=== PATIENT | female | born 1990 | race Caucasian/White ===

== ENCOUNTER → 2016-08-29 | Outpatient (CLI) | payer MEDICAID ==
--- NOTE | 2016-08-30 09:29 | CR ---
EXAMINATION: Left shoulder HISTORY: Injury COMPARISON: None TECHNIQUE: 3 views FINDINGS/IMPRESSION: There is no acute osseous abnormality, dislocation, or fracture identified. Bon e mineralization and joint spaces appear normal.
== END ==
LOC: MW.CHFP 15:40
PROVIDERS: ATTEND Physician Assistant
DX: S49.92XA Unspecified injury of left shoulder and upper arm, initial encounter (principal)
CPT/HCPCS: 73030-26-LT; 73030-LT

== ENCOUNTER 2017-03-04 16:29 | Emergency (ER) | payer MEDICAID ==
[2017-03-04] MEDS ORDERED: Sodium Chloride 0.9% 1,000 ML IV ONE (16:31)
[2017-03-04] MEDS ORDERED: Ondansetron 4 MG/2 ML SDV IVPUSH ONE (16:58)
[2017-03-04] MEDS ORDERED: Ketorolac 30 MG/ML SDV IVPUSH ONE (16:58)
--- NOTE | 2017-03-04 17:10 | EDM.PDOC ---
ED HPI GENERAL MEDICAL PROBLEM - General Chief Complaint: Chest Pain Stated Complaint: CHEST PAIN Time Seen by Provider: 03/04/17 16:30 Source of Information: Reports: Patient History Limitations: Reports: No Limitations - History of Present Illness INITIAL COMMENTS - FREE TEXT/NARRATIVE: HISTORY AND PHYSICAL: History of present illness: Patient is a 26-year-old female who presents to the emergency room with complaints of chest pain that radiates into the left shoulder and into her head. States that the pain was constant last night, she was able to fall sleep and go to bed. Woke up this morning and the pain waxed and waned. Denies any shortness of breath, diaphoresis, nausea, vomiting or diarrhea Review of systems: As per history of present illness and below otherwise all systems reviewed and negative. Past medical history: As per history of present illness and as reviewed below otherwise noncontributory. Surgical history: As per history of present illness and as reviewed below otherwise noncontributory. Social history: No reported history of drug or alcohol abuse. Family history: As per history of present illness and as reviewed below otherwise noncontributory. Physical exam: Enteral: Well-developed and well-nourished 26-year-old female. Able to speak in full sentences without shortness of breath. Alert and oriented. HEENT: Atraumatic, normocephalic, pupils reactive, negative for conjunctival pallor or scleral icterus, mucous membranes moist, throat clear, neck supple, nontender, trachea midline. Lungs: Clear to auscultation, breath sounds equal bilaterally, chest nontender. Nonreproducible with palpation. Heart: S1S2, regular, negative for clicks, rubs, or JVD. Abdomen: Soft, nondistended, nontender. Negative for masses or hepatosplenomegaly. Negative for costovertebral tenderness. Pelvis: Stable nontender. Genitourinary: Deferred. Rectal: Deferred. Extremities: Atraumatic, negative for cords or calf pain. Neurovascular unremarkable. Neuro: Awake, alert, oriented. Cranial nerves II through XII unremarkable. Cerebellum unremarkable. Motor and sensory unremarkable throughout. Exam nonfocal. After receiving the IV fluids, Toradol, Zofran patient reports that she feels improved. Lab and x-ray were reviewed with the patient. States she is comfortable going home. We'll follow-up with her primary care provider in the next 1-2 days or return to the ER. Patient is agreeable to plan of care and denies any further questions. Diagnostics: CBC, CMP, troponin, EKG, chest x-ray Therapeutics: IV fluid, Zofran, Toradol Impression: Chest pain Plan: 1. All lab results and x-ray were within normal limits today. If you continue to have episodes of chest pain please follow-up with your primary care provider as you may need further testing. 2. May take Tylenol and/or ibuprofen as needed for pain. Return to the ED as needed and as discussed. Definitive disposition and diagnosis as appropriate pending reevaluation and review of above. Onset Date: 03/03/17 Location: Reports: Chest Left Chest Pain Score (Numeric/FACES): 7 - Related Data Allergies Allergy/AdvReac Type Severity Reaction Status Date / Time No Known Allergies Allergy Verified 03/04/17 16:34 Home Meds: Home Meds Venlafaxine [Effexor] 75 mg PO DAILY 10/02/13 [History] Past Medical History - Past Health History Medical/Surgical History: Denies Medical/Surgical History HEENT History: Reports: None Cardiovascular History: Reports: None Respiratory History: Reports: None Gastrointestinal History: Reports: None Musculoskeletal History: Reports: None Psychiatric History: Reports: Anxiety, Bipolar, Depression Hematologic History: Reports: None Immunologic History: Reports: None Oncologic (Cancer) History: Reports: None - Infectious Disease History Infectious Disease History: Reports: Chicken Pox - Past Surgical History Head Surgeries/Procedures: Reports: None HEENT Surgical History: Reports: None Social & Family History - Family History Family Medical History: Noncontributory HEENT: Reports: None Cardiac: Reports: None Respiratory: Reports: None GI: Reports: None OBGYN: Reports: None Musculoskeletal: Reports: None Neurological: Reports: None Psychiatric: Reports: None Endocrine/Metabolic: Reports: Diabetes, type II Immunologic: Reports: None Dermatologic: Reports: None Oncologic: Reports: None - Tobacco Use Smoking Status *Q: Current Every Day Smoker Years of Tobacco use: 7 Packs/Tins Daily: 0.5 Used Tobacco, but Quit: No Second Hand Smoke Exposure: Yes - Alcohol Use Days Per Week of Alcohol Use: 0 - Recreational Drug Use Recreational Drug Use: No ED ROS GENERAL - Review of Systems Review Of Systems: ROS reveals no pertinent complaints other than HPI. ED EXAM, GENERAL - Physical Exam Exam: See Below (See dictation) Course - Vital Signs Last Recorded V/S: Last Vital Signs Temp 35.7 C 03/04/17 16:32 Pulse 95 03/04/17 16:32 Resp 18 03/04/17 16:32 BP 148/82 H 03/04/17 16:32 Pulse Ox 98 03/04/17 16:32 - Orders/Labs/Meds Orders: Active Orders 24 hr Category Date Time Status EKG Documentation Completion [RC] STAT Care 03/04/17 16:31 Active Chest 2V [CR] Stat Exams 03/04/17 16:58 Taken Labs: Laboratory Tests 03/04/17 03/04/17 Range/Units 16:49 16:49 WBC 13.94 H (4.0-11.0) K/uL RBC 4.79 (4.30-5.90) M/uL Hgb 13.9 (12.0-16.0) g/dL Hct 41.5 (36.0-46.0) % MCV 86.6 (80.0-98.0) fL MCH 29.0 (27.0-32.0) pg MCHC 33.5 (31.0-37.0) g/dL RDW Std Deviation 41.6 (28.0-62.0) fl RDW Coeff of Giselle 13 (11.0-15.0) % Plt Count 267 (150-400) K/uL MPV 9.80 (7.40-12.00) fL Add Manual Diff YES Neutrophils % (Manual) 59 (48.0-80.0) % Band Neutrophils % 11 % Lymphocytes % (Manual) 22 (16.0-40.0) % Monocytes % (Manual) 4 (0.0-15.0) % Eosinophils % (Manual) 4 (0.0-7.0) % Nucleated RBC % 0.0 /100WBC Absolute Seg Neuts 8.2 H (1.4-5.7) Band Neutrophils # 1.5 Lymphocytes # (Manual) 3.1 H (0.6-2.4) Monocytes # (Manual) 0.6 (0.0-0.8) Eosinophils # (Manual) 0.6 (0.0-0.7) Nucleated RBCs # 0 K/uL Sodium 137 (136-146) mmol/L Potassium 3.9 (3.5-5.1) mmol/L Chloride 105 (98-110) mmol/L Carbon Dioxide 25 (21-31) mmol/L BUN 12 (6.0-23.0) mg/dL Creatinine 0.8 (0.6-1.5) mg/dL Est Cr Clr Drug Dosing 104.54 mL/min Estimated GFR (MDRD) > 60.0 ml/min Glucose 261 H (60-110) mg/dL Calcium 9.1 (8.8-10.8) mg/dL Total Bilirubin 0.2 (0.1-1.5) mg/dL AST 11 (5-40) IU/L ALT 21 (8-54) IU/L Alkaline Phosphatase 97 (40-150) Troponin I < 0.10 (0.0-0.29) NG/ML Total Protein 6.9 (6.0-8.0) g/dL Albumin 3.7 (3.5-5.0) g/dL Globulin 3.2 (2.0-3.5) g/dL Albumin/Globulin Ratio 1.2 L (1.3-2.8) Meds: Medications Discontinued Medications Generic Name Dose Route Start Last Admin Trade Name Freq PRN Reason Stop Dose Admin Sodium Chloride 1,000 mls @ 999 mls/hr 03/04/17 16:31 03/04/17 16:49 Normal Saline IV 03/04/17 17:31 999 mls/hr STAT ONE Administration Ketorolac Tromethamine 30 mg 03/04/17 16:58 03/04/17 17:09 Toradol IVPUSH 03/04/17 16:59 30 mg ONETIME ONE Administration Ondansetron HCl 4 mg 03/04/17 16:58 03/04/17 17:08 Zofran IVPUSH 03/04/17 16:59 4 mg ONETIME ONE Administration Departure - Departure Time of Disposition: 18:27 Disposition: Home, Self-Care 01 Clinical Impression: Nonspecific chest pain Instructions: Nonspecific Chest Pain, [id number] Forms: ED Department Discharge Additional Instructions: My general discharge The following information is given to patients seen in the emergency department who are being discharged to home. This information is to outline your options for follow-up care. We provide all patients seen in our emergency department with a follow-up referral. The need for follow-up, as well as the timing and circumstances, are variable depending upon the specifics of your emergency department visit. If you don't have a primary care physician on staff, we will provide you with a referral. We always advise you to contact your personal physician following an emergency department visit to inform them of the circumstance of the visit and for follow-up with them and/or the need for any referrals to a consulting specialist. The emergency department will also refer you to a specialist when appropriate. This referral assures that you have the opportunity for follow-up care with a specialist. All of these measure are taken in an effort to provide you with optimal care, which includes your follow-up. Under all circumstances we always encourage you to contact your private physician who remains a resource for coordinating your care. When calling for follow-up care, please make the office aware that this follow-up is from your recent emergency room visit. If for any reason you are refused follow-up, please contact the [facility] Emergency Department at and asked to speak to the emergency department charge nurse. [facility] [address] [place] [phone] 1. All lab results and x-ray were within normal limits today. If you continue to have episodes of chest pain please follow-up with your primary care provider as you may need further testing. 2. May take Tylenol and/or ibuprofen as needed for pain. Return to the ED as needed and as discussed. - My Orders Last 24 Hours: My Active Orders 03/04/17 16:31 EKG Documentation Completion [RC] STAT 03/04/17 16:58 Chest 2V [CR] Stat - Assessment/Plan Last 24 Hours: My Active Orders 03/04/17 16:31 EKG Documentation Completion [RC] STAT 03/04/17 16:58 Chest 2V [CR] Stat
[2017-03-04 17:30] LABS: CHLORIDE,CL 105 mmol/L (98-110); SODIUM,NA 137 mmol/L (136-146)
[2017-03-04 18:36] VITALS: BP 129/73
--- NOTE | 2017-03-05 10:00 | CR ---
EXAM DATE: 03/04/17 PATIENT'S AGE: 26 Patient: SYLVIA ASCENCIO Facility: [place], [place] Site . Site : 1990 Study: XRay Chest [id number]/23/2017 5:21:11 PM Ordering Physician: Doctor Cortes Final Report: INDICATION: chest pain TECHNIQUE: Chest 2 views COMPARISON: None FINDINGS: Cardiovascular and mediastinum: Heart size and vasculature are normal in caliber and appearance. Mediastinum is within normal limits. Lungs and pleural spaces: No focal consolidation. No sign of pleural effusion. No pneumothorax. Bones and soft tissues: No significant findings. IMPRESSION: No acute cardiopulmonary disease. Dictated by Tony Knox MD @ 03/04/2017 6:12:14 PM Dictated by: Tony Knox MD @ 03/04/2017 18:12:18 (Electronic Signature) Report Signed by Proxy. [facility] H[facility]PITALDylan
== END 2017-03-04 18:35 | disposition home or self-care (01) ==
LOC: MW.ED 16:29
DX: R07.9 Chest pain, unspecified (principal); F17.210 Nicotine dependence, cigarettes, uncomplicated; Z79.899 Other long term (current) drug therapy
CPT/HCPCS: 36415; 71020; 80053; 84484; 85025; 93005; 96374; 96375; 99285; J1885; J2405; J7040; 99282

== ENCOUNTER 2017-05-21 02:52 | Emergency (ER) | payer MEDICAID ==
[2017-05-21] MEDS ORDERED: Benzocaine 20% Topical Spray UD MUCMEM ONE (03:06)
[2017-05-21] MEDS ORDERED: Lidocaine 2% Viscous Solution 15 ML Cup PO ONE (03:06)
--- NOTE | 2017-05-21 03:14 | EDM.PDOC ---
ED HPI GENERAL MEDICAL PROBLEM - General Chief Complaint: ENT Problem Stated Complaint: TOOTH PAIN Time Seen by Provider: 05/21/17 03:03 - History of Present Illness INITIAL COMMENTS - FREE TEXT/NARRATIVE: HISTORY AND PHYSICAL: History of present illness: The patient is a 26-year-old female who presents with complaints of tooth pain for the last 2 days. She has had issues with her teeth with multiple dental caries and dental disease but has not followed up with a dentist and says that one of her front teeth on the right broke off 2 days ago and has been increased pain. Patient has not had any systemic complaints and is here for care. She does not have a local dentist Review of systems: As per history of present illness and below otherwise all systems reviewed and negative. Past medical history: As per history of present illness and as reviewed below otherwise noncontributory. Surgical history: As per history of present illness and as reviewed below otherwise noncontributory. Social history: No reported history of drug or alcohol abuse. Family history: As per history of present illness and as reviewed below otherwise noncontributory. Physical exam: Gen.: Well-developed well-nourished overweight female is nontoxic and vital signs are noted by me HEENT: Atraumatic, normocephalic, pupils reactive, negative for conjunctival pallor or scleral icterus, mucous membranes moist, throat clear, neck supple, nontender, trachea midline. There is no cervical adenopathy or nuchal rigidity. There are multiple areas of dental disease and dental decay seen throughout the mouth most noteworthy is in the right upper incisor area where there are several teeth that are either decay or broken and there is gum swelling here. Lungs: Clear to auscultation, breath sounds equal bilaterally, chest nontender. Heart: S1S2, regular rate and rhythm no overt murmurs Abdomen: Deferred Pelvis: Deferred Genitourinary: Deferred. Rectal: Deferred. Extremities: Atraumatic, full range of motion without defects or deficits Neurovascular unremarkable. Neuro: Awake, alert, oriented. Cranial nerves II through XII unremarkable. Cerebellum unremarkable. Motor and sensory unremarkable throughout. Exam nonfocal. Diagnostics: [] Therapeutics: DEntal balls Impression: Dental caries/dental infection with tooth fractures Definitive disposition and diagnosis as appropriate pending reevaluation and review of above. tooth Pain Score (Numeric/FACES): 10 - Related Data Allergies Allergy/AdvReac Type Severity Reaction Status Date / Time No Known Allergies Allergy Verified 05/21/17 02:57 Home Meds: Home Meds Venlafaxine [Effexor] 75 mg PO DAILY 10/02/13 [History] Past Medical History - Past Health History Medical/Surgical History: Denies Medical/Surgical History HEENT History: Reports: None Cardiovascular History: Reports: None Respiratory History: Reports: None Gastrointestinal History: Reports: None Musculoskeletal History: Reports: None Psychiatric History: Reports: Anxiety, Bipolar, Depression Hematologic History: Reports: None Immunologic History: Reports: None Oncologic (Cancer) History: Reports: None - Infectious Disease History Infectious Disease History: Reports: Chicken Pox - Past Surgical History Head Surgeries/Procedures: Reports: None HEENT Surgical History: Reports: None Social & Family History - Family History Family Medical History: Noncontributory HEENT: Reports: None Cardiac: Reports: None Respiratory: Reports: None GI: Reports: None OBGYN: Reports: None Musculoskeletal: Reports: None Neurological: Reports: None Psychiatric: Reports: None Endocrine/Metabolic: Reports: Diabetes, type II Immunologic: Reports: None Dermatologic: Reports: None Oncologic: Reports: None - Tobacco Use Smoking Status *Q: Current Every Day Smoker Years of Tobacco use: 7 Packs/Tins Daily: 0.5 Used Tobacco, but Quit: No Second Hand Smoke Exposure: Yes - Alcohol Use Days Per Week of Alcohol Use: 0 - Recreational Drug Use Recreational Drug Use: No ED ROS GENERAL - Review of Systems Review Of Systems: ROS reveals no pertinent complaints other than HPI. ED EXAM, GENERAL - Physical Exam Exam: See Below (See dictation) Course - Vital Signs Last Recorded V/S: Last Vital Signs Temp 36.6 C 05/21/17 02:58 Pulse 90 05/21/17 02:58 Resp 20 05/21/17 02:58 BP 155/108 H 05/21/17 02:58 Pulse Ox 97 05/21/17 02:58 - Orders/Labs/Meds Orders: Active Orders 24 hr Category Date Time Status Benzocaine [Hurricaine One 20%] Med 05/21/17 03:06 Once 2 each MUCMEM ONETIME ONE Lidocaine 2% [Xylocaine 2% Viscous] Med 05/21/17 03:06 Once 15 ml PO ONETIME ONE Medication Orders Benzocaine (Hurricaine One 20%) 2 each MUCMEM ONETIME ONE Stop: 05/21/17 03:07 Lidocaine HCl (Xylocaine 2% Viscous) 15 ml PO ONETIME ONE Stop: 05/21/17 03:07 Meds: Medications Generic Name Dose Route Start Last Admin Trade Name Roberto PRN Reason Stop Dose Admin Benzocaine 2 each 05/21/17 03:06 Hurricaine One 20% MUCMEM 05/21/17 03:07 ONETIME ONE Lidocaine HCl 15 ml 05/21/17 03:06 Xylocaine 2% Viscous PO 05/21/17 03:07 ONETIME ONE Departure - Departure Time of Disposition: 03:14 Disposition: Home, Self-Care 01 Condition: Good Clinical Impression: Dental disease, Dental infection - Discharge Information Referrals: PCP,None [Primary Care Provider] - Additional Instructions: The following information is given to patients seen in the emergency department who are being discharged to home. This information is to outline your options for follow-up care. We provide all patients seen in our emergency department with a follow-up referral. The need for follow-up, as well as the timing and circumstances, are variable depending upon the specifics of your emergency department visit. If you don't have a primary care physician on staff, we will provide you with a referral. We always advise you to contact your personal physician following an emergency department visit to inform them of the circumstance of the visit and for follow-up with them and/or the need for any referrals to a consulting specialist. The emergency department will also refer you to a specialist when appropriate. This referral assures that you have the opportunity for followup care with a specialist. All of these measure are taken in an effort to provide you with optimal care, which includes your followup. Under all circumstances we always encourage you to contact your private physician who remains a resource for coordinating your care. When calling for followup care, please make the office aware that this follow-up is from your recent emergency room visit. If for any reason you are refused follow-up, please contact the emergency department at and ask to speak to the emergency department charge nurse. [facility] Primary care- [place] [address] Please use dental balls as you have been shown to areas of discomfort when you need. Use [id number] Tylenol and ibuprofen or pain. Take antibiotics you have been prescribed until they're finished and please contact a local dentist for definitive care and treatment as we discussed. Follow-up in our clinic with one of her providers as needed and return to ER as needed and as discussed - My Orders Last 24 Hours: My Active Orders 05/21/17 03:06 Benzocaine [Hurricaine One 20%] 2 each MUCMEM ONETIME ONE Lidocaine 2% [Xylocaine 2% Viscous] 15 ml PO ONETIME ONE - Assessment/Plan Last 24 Hours: My Active Orders 05/21/17 03:06 Benzocaine [Hurricaine One 20%] 2 each MUCMEM ONETIME ONE Lidocaine 2% [Xylocaine 2% Viscous] 15 ml PO ONETIME ONE
[2017-05-21 03:29] VITALS: BP 141/99
== END 2017-05-21 03:37 | disposition home or self-care (01) ==
LOC: MW.ED 02:52
DX: K04.7 Periapical abscess without sinus (principal); K02.9 Dental caries, unspecified; F17.210 Nicotine dependence, cigarettes, uncomplicated; Z79.899 Other long term (current) drug therapy
CPT/HCPCS: 99282; A9270

== ENCOUNTER 2017-09-24 23:16 | Emergency (ER) | payer MEDICAID ==
--- NOTE | 2017-09-24 23:31 | EDM.PDOC ---
ED HPI GENERAL MEDICAL PROBLEM - General Chief Complaint: Skin Complaint Stated Complaint: PT HAS SUNBURN BLISTERS ON BODY Time Seen by Provider: 09/24/17 23:30 Source of Information: Reports: Patient - History of Present Illness INITIAL COMMENTS - FREE TEXT/NARRATIVE: HISTORY AND PHYSICAL: History of present illness: [Patient has been out the sun over the last weekend developed sunburn on her shoulders and arms she has blistering on her shoulders is quite painful she's used [id number] modalities without any benefit No fever nausea vomiting chills sweats] Review of systems: As per history of present illness and below otherwise all systems reviewed and negative. Past medical history: As per history of present illness and as reviewed below otherwise noncontributory. Surgical history: As per history of present illness and as reviewed below otherwise noncontributory. Social history: No reported history of drug or alcohol abuse. Family history: As per history of present illness and as reviewed below otherwise noncontributory. Physical exam: HEENT: Atraumatic, normocephalic, pupils reactive, negative for conjunctival pallor or scleral icterus, mucous membranes moist, throat clear, neck supple, nontender, trachea midline. Lungs: Clear to auscultation, breath sounds equal bilaterally, chest nontender. Heart: S1S2, regular, negative for clicks, rubs, or JVD. Abdomen: Soft, nondistended, nontender. Negative for masses or hepatosplenomegaly. Negative for costovertebral tenderness. Pelvis: Stable nontender. Genitourinary: Deferred. Rectal: Deferred. Extremities: Atraumatic, negative for cords or calf pain. Neurovascular unremarkable. Neuro: Awake, alert, oriented. Cranial nerves II through XII unremarkable. Cerebellum unremarkable. Motor and sensory unremarkable throughout. Exam nonfocal. Diagnostics: []Clinical Therapeutics: []Silvadene cream Impression: [Sunburn with blistering on shoulders] Definitive disposition and diagnosis as appropriate pending reevaluation and review of above. both arms Pain Score (Numeric/FACES): 10 - Related Data Allergies Allergy/AdvReac Type Severity Reaction Status Date / Time No Known Allergies Allergy Verified 09/24/17 23:31 Home Meds: Home Meds Venlafaxine [Effexor] 75 mg PO DAILY 10/02/13 [History] Past Medical History - Past Health History Medical/Surgical History: Denies Medical/Surgical History HEENT History: Reports: None Cardiovascular History: Reports: None Respiratory History: Reports: None Gastrointestinal History: Reports: None Musculoskeletal History: Reports: None Psychiatric History: Reports: Anxiety, Bipolar, Depression Hematologic History: Reports: None Immunologic History: Reports: None Oncologic (Cancer) History: Reports: None - Infectious Disease History Infectious Disease History: Reports: Chicken Pox - Past Surgical History Head Surgeries/Procedures: Reports: None HEENT Surgical History: Reports: None Social & Family History - Family History Family Medical History: Noncontributory HEENT: Reports: None Cardiac: Reports: None Respiratory: Reports: None GI: Reports: None OBGYN: Reports: None Musculoskeletal: Reports: None Neurological: Reports: None Psychiatric: Reports: None Endocrine/Metabolic: Reports: Diabetes, type II Immunologic: Reports: None Dermatologic: Reports: None Oncologic: Reports: None ED ROS GENERAL - Review of Systems Review Of Systems: ROS reveals no pertinent complaints other than HPI. ED EXAM, SKIN/RASH Exam: See Below Course - Vital Signs Last Recorded V/S: Last Vital Signs Temp 97 F 09/24/17 23:16 Pulse 99 09/24/17 23:16 Resp 18 09/24/17 23:16 BP 152/93 H 09/24/17 23:16 Pulse Ox 97 09/24/17 23:16 - Orders/Labs/Meds Orders: Active Orders 24 hr Category Date Time Status Silver Sulfadiazine [Silvadene 1% Cream 50 GM] Med 09/24/17 23:32 Once 1 gm TOP ONETIME ONE Departure - Departure Time of Disposition: 23:34 Disposition: Home, Self-Care 01 Condition: Good Clinical Impression: Sunburn, blistering - Discharge Information Referrals: PCP,None [Primary Care Provider] - Forms: ED Department Discharge Additional Instructions: Apply Silvadene 2 times daily as needed 7-10 days Return if symptoms persist or worsen Follow-up with primary care as needed The following information is given to patients seen in the emergency department who are being discharged to home. This information is to outline your options for follow-up care. We provide all patients seen in our emergency department with a follow-up referral. The need for follow-up, as well as the timing and circumstances, are variable depending upon the specifics of your emergency department visit. If you don't have a primary care physician on staff, we will provide you with a referral. We always advise you to contact your personal physician following an emergency department visit to inform them of the circumstance of the visit and for follow-up with them and/or the need for any referrals to a consulting specialist. The emergency department will also refer you to a specialist when appropriate. This referral assures that you have the opportunity for follow-up care with a specialist. All of these measure are taken in an effort to provide you with optimal care, which includes your follow-up. Under all circumstances we always encourage you to contact your private physician who remains a resource for coordinating your care. When calling for follow-up care, please make the office aware that this follow-up is from your recent emergency room visit. If for any reason you are refused follow-up, please contact the [facility] emergency department at and asked to speak to the emergency department charge nurse. - My Orders Last 24 Hours: My Active Orders 09/24/17 23:32 Silver Sulfadiazine [Silvadene 1% Cream 50 GM] 1 gm TOP ONETIME ONE - Assessment/Plan Last 24 Hours: My Active Orders 09/24/17 23:32 Silver Sulfadiazine [Silvadene 1% Cream 50 GM] 1 gm TOP ONETIME ONE
[2017-09-24] MEDS ORDERED: Silver Sulfadiazine 1% Crm 50 GM Tube TOP ONE (23:32)
[2017-09-24 23:48] VITALS: BP 150/90
== END 2017-09-24 23:45 | disposition home or self-care (01) ==
LOC: MW.ED 23:16
DX: L55.1 Sunburn of second degree (principal); Z79.899 Other long term (current) drug therapy; F41.9 Anxiety disorder, unspecified; F32.9 Major depressive disorder, single episode, unspecified
CPT/HCPCS: 99283; A9270

== ENCOUNTER 2017-10-29 13:36 | Emergency (ER) | payer MEDICAID ==
--- NOTE | 2017-10-29 14:07 | EDM.PDOC ---
ED HPI GENERAL MEDICAL PROBLEM - General Chief Complaint: ENT Problem Stated Complaint: MOUTH PAIN Time Seen by Provider: 10/29/17 14:07 Source of Information: Reports: Patient History Limitations: Reports: No Limitations - History of Present Illness INITIAL COMMENTS - FREE TEXT/NARRATIVE: HISTORY AND PHYSICAL: []27-year-old for mouth pain History of Present Illness: []Patient has been seen multiple times for dental abscess and dental caries She states the dentist will not order the antibiotics for her and she needs to be on this antibiotic prior to him seen Review of Systems: As per history of present illness and below otherwise all systems reviewed and negative. Past medical history: As per history of present illness and as reviewed below otherwise noncontributory. Surgical history: As per history of present illness and as reviewed below otherwise noncontributory. Social history: No reported history of drug or alcohol abuse. Family history: As per history of present illness and as reviewed below otherwise noncontributory. Physical exam: Alert female who doesn't like to speak the air hitting her front teeth( #9) causes pain. Tooth #9 fractured to the gumline. The areas of poor dentition are present HEENT: Atraumatic, normocehpalic, pupils reactive, negative for conjunctival pallor or scleral icterus, mucous membranes moist, throat clear, neck supple, nontender, trachea midline. Lungs: Clear to auscultation, breath sounds equal bilaterally, chest non tender. Heart: S1S2, regular, negative for clicks, rubs, or JVD. Abdomen: Soft, nondistended, nontender. Negative for masses or hepatossplenmegaly. Negative for costovertebral tenderness. Pelvis: Stable nontender. Genitourinary: Deferred. Rectal: Deferred Extremities: Atraumatic, negative for cords or calf pain. Neurovascular unremarkable. Neuro: Awake, alert, oriented. Cranial nerves II through XII unremarkable. Cerebellum unremarkable. Motor and sensory unremarkable throughout. Exam nonfocal. All amount of liquid cement has been applied to the front tooth to try to give some direction against the air hitting it and causing pain Diagnostics: [] Therapeutics: [] Impression: []Dental pain /fractured tooth Total abscess/ Plan: []Discharged home Augmentin 875 twice a day 10 days Definitive disposition and diagnosis as appropriate pending reevaluation and review of above. Onset: Gradual Duration: Chronic Location: Reports: Face. Denies: Back ( [id number] [id number] [id number] [id number] [id number] [id number] [id number] [id number] [id number] [id number]3 24287733959383787224509645voeoezvtzqvdzqkkpnmcgmoefmpunycwyvniacgbpehwflstwtbedd wwwwwwwwwwwwwwwwwwwwwwwwwwwwwwwwwwwwwwwwwwwwwwwwwwwwwwwwwwwwwwwwwwwwwwwwwwwwwwww wwwwwwwwwwwwwwwwwwwwwwwwwwwwwwwwwwwwwwww wwwwwwwwwwwwwwwwwwwwwwwwwwwwwwwwwwwwwwwwwwwwwwwwwwwwwwwwwwwwwwwwwwwwwwwwwwwwwwww wwwwwwwwwwwwwwwwwwwwwwwwwwwwwwwwwwwwwwwwwwwwwwwwwwwwwwwwwwwwwwwwwwwwwwwwwwwwwwww wwwwwwwwwwwwwwwwwwwwwwwwwwwwwwwwwwwwwwww wwwwwwwwwwwwwwwwwwwwwwwwwwwwwwwwwwwwwwwwwwwwwwwwwwwwwwwwwwwwwwwwwwwwwwwwwwwwwwww wwwwwwwwwwwwwwwwwwwwwwwwwwwwwwwwwwwwwwwwwwwwwwwwwwwwwwwwwwwwwwwwwwwwwwwwwwwwwwww wwwwwwwwwwwwwwwwwwwwwwwwwwwwwwwwwwwwwwww wwwwwwwwwwwwwwwwwwwwwwwwwwwwwwwwwwwwwwwwwwwwwwwwwwwwwwwwwwwwwwwwwwwwwwwwwwwwwwww wwwwwwwwwwwwwwwwwwwwwwwwwwwwwwwwwwwwwwwwwwwwwwwwwwwwwwwwwwwwwwwwtheresawwwwwwwwwwwwww wwwwwwwwwwwwwwwwwwwwwwwwwwwwwwwwwwwwwwww wwwwwwwwwtheresawwwwwletywwwwwsherylwwwwwwwwwwwwwwwwwwwwwwwwwwwwwwwwwwwwwwwwwwwwwwwwwwwww wwwwwtheowwwtundewwwwwwwwwwwwwwwwwwwwwwwwwwwwwwwwwwwwwwwwwwwwwwwwwwwwwwwwwwwwwwwww wwwwwwwwwwwwwwwwwwwwwwwwwwwwwwwwwwwwwwww wwwwwwwwwwwwwwwwwwwwwwwwwwwwwwwwwwwwwwwwwwwwwwwwwwwwwwwwwwwwwwwwwwwwwwwwwwwwwwww wwwwwwwwwwwwwwwwwwwwwwwwwwwwwwwwwwwwwwwwwwwwwwwwwwwwwwwwwwwwwwwwwwwwwwwwwwwwwwww wwwwwwwwwwwwwwwwwwwwwwwwwwwwwwwwwwwwwwww wwwwwwwwwwwwwwwwwwwwwwwwwwwwwwwwwwwwwwwwwwwwwwwwwwwwwwwwwwwwwwwwwwwwwwwwwwwwwwww wwwwwwwwwwwwwwwwwwwwwwwwwwwwwwwwwwwwwwwwwwwwwwwwwwwwwwwwwwwwwwwwwwwwwwwwwwwwwwww wwwwwwwwwwwwwwwwwwwwwwwwwwwwwwwwwwwwwwww wwwwwwwwwwwwwwwwwwwwwwwwwwwwwwwwwwwwwwwwwwwwwwwwwwwwwwwwwwwwwwwwwwwwwwwwwwwwwwww wwwwwwwwwwwwwwwwwwwwwwwwwwwwwwwwwwwwwwwwwwwwwwwwwwwwwwwwwwwwwwwwwwwwwwwwwwwwwwww wwwwwwwwwwwwwwwwwwwwwwwwwwwwwwwwwwwwwwww wwwwwwwwwwwwwwwwwwwwwwwwwwwwwwwwwwwwwwwwwwwwwwwwwwwwwwwwwwwwwwwwwwwwwwwwwwwwwwww wwwwwwwwwwwwwwwwwwwwwwwwwwwwwwwwwwwwwwwwwwwwwwwwwwwwwwwwwwwwwwwwwwwwwwwwwwwwwwww wwwwwwwwwwwwwwwwwwwwwwwwwwwwwwwwwwwwwwww wwwwwwwwwwwwwwwwwwwwwwwwwwwwwwwwwwwwwwwwwwwwwwwwwwwwwwwwwwwwwwwwwwwwwwwwwwwwwwww wwwwwwwwwwwwwwwwwwwwwwwwwwwwwwwwwwwwwwwwwwwwwwwwwwwwwwwwwwwwwwwwwwwwwwwwwwwwwwww wwwwwwwwwwwwwwwwwwwwwwwwwwwwwwwwwwwwwwww wwwwwwwwwwwwwwwwwwwwwwwwwwwwwwwwwwwwwwwwwwwwwwwwwwwwwwwwwwwwwwwwwwwwwwwwwwwwwwww wwwwwwwwwwwwwwwwwwwwwwwwwwwwwwwwwwwwwwwwwwwwwwwwwwwwwwwwwwwwwwwwwwwwwwwwwwwwwwww wwwwwwwwwwwwwwwwwwwwwwwwwwwwwwwwwwwwwwww wwwwwwwwwwwwwwwwwwwwwwwwwwwwwwwwwwwwwwwwwwwwwwwwwwwwwwwwwwwwwwwwwwwwwwwwwwwwwwww wwwwwwwwwwwwwwwwwwwwwwwwwwwwwwwwwwwwwwwwwwwwwwwwwwwwwwwwwwwwwwwwwwwwwwwwwwwwwwww wwwwwwwsherylwwwwwwwwwwwwwwwwwwwwwwwwwwwwwwww wwwwwwwwwwwwwwwwwwwwwwwwwwwwwwwwtundewwwwwwwwwwwwwwwwwwwwwwwwwwwwwwwwwwwwwwwwwwwww wwwwwwwwwwwwwwwwwwwwwwwwwwwwwwwwwwwwwwwwwwwwwwwwwwwwwwwwwwwwwwwwwwwwwwwwwwwwwwww wwwwwwwwwwwwwwwwwwwwwwwwwwwwwwwwwwwwwwww wwwwwwwwwwwwwwwwwwwwwwwwwwwwwwwwwwwwwwwwwwwwwwwwwwwwwwwwwwwwwwwwwwwwwwwwwwwwwwww wwwwwwwwwwwwwwwwwwwwwwwwwwwwwwwwwwwwwwwwwwwwwwwwwwwwwwwwwwwwwwwwwwwwwwwwwwwwwwww wwwwwwwwwwwwwwwwwwwwwwwwwwwwwwwwwwwwwwww wwwwwwwwwwwwwwwwwwwwwwwwwwwwwwwwwwwwwwwwwwwwwwwwwwwwwwwwwwwwwwwwwwwwwwwwwwwwwwww wwwwwwwwwwwwwwwwwwwwwwwwwwwwwwwwwwwwwwwwwwwwwwwwwwwwwwwwwwwwwwwwwwwwwwwwwwwwwwww wwwwwwwwwwwwwwwwwwwwwwwwwwwwwwwwwwwwwwww wwwwwwwwwwwwwwwwwwwwwwwwwwwwwwwwwwwwwwwwwwwwwwwwwwwwwwwwwwwwwwwwwwwwwwwwwwwwwwww lidvgdyexdhqbhunndqrubuaducbgsxwjhm[id number] [id number] 992762393619125809vwpgjzpedfafuegdimgkiindmnxiqjzrsdjirupfervldaplkocbyntylktlzh wwwwwwwwwwwwwwwwwwwwwwwwwwwwwwwwwwwwwwww wwwwwwwwwwwwwwwwwwwwwwwwwwwwwwww) Quality: Reports: Same as Previous Episode Severity: Severe Improves with: Reports: None Worsens with: Reports: None Oral/Mouth Pain Score (Numeric/FACES): 8 - Related Data Allergies Allergy/AdvReac Type Severity Reaction Status Date / Time No Known Allergies Allergy Verified 10/29/17 13:42 Home Meds: Home Meds Venlafaxine [Effexor] 75 mg PO DAILY 05/23/14 [History] Amoxicillin/Potassium Clav [Augmentin 875-125 Tablet] 1 each PO BID #20 tablet 10/29/17 [Rx] Past Medical History - Past Health History Medical/Surgical History: Denies Medical/Surgical History HEENT History: Reports: None Cardiovascular History: Reports: None Respiratory History: Reports: None Gastrointestinal History: Reports: None Musculoskeletal History: Reports: None Psychiatric History: Reports: Anxiety, Bipolar, Depression Endocrine/Metabolic History: Reports: Obesity/BMI 30+ Hematologic History: Reports: None Immunologic History: Reports: None Oncologic (Cancer) History: Reports: None - Infectious Disease History Infectious Disease History: Reports: Chicken Pox - Past Surgical History Head Surgeries/Procedures: Reports: None HEENT Surgical History: Reports: None Social & Family History - Family History Family Medical History: Noncontributory HEENT: Reports: None Cardiac: Reports: None Respiratory: Reports: None GI: Reports: None OBGYN: Reports: None Musculoskeletal: Reports: None Neurological: Reports: None Psychiatric: Reports: None Endocrine/Metabolic: Reports: Diabetes, type II Immunologic: Reports: None Dermatologic: Reports: None Oncologic: Reports: None - Tobacco Use Smoking Status *Q: Current Some Day Smoker Years of Tobacco use: 8 Packs/Tins Daily: 0.5 - Caffeine Use Caffeine Use: Reports: Soda - Recreational Drug Use Recreational Drug Use: No ED ROS ENT - Review of Systems Review Of Systems: ROS reveals no pertinent complaints other than HPI. ED EXAM, ENT - Physical Exam Exam: See Below (see dictatiobn) Course - Vital Signs Last Recorded V/S: Last Vital Signs Temp 35.9 C 10/29/17 13:42 Pulse 94 10/29/17 13:42 Resp 18 10/29/17 13:42 BP 146/81 H 10/29/17 13:42 Pulse Ox 98 10/29/17 13:42 Departure - Departure Time of Disposition: 14:43 Disposition: Home, Self-Care 01 Condition: Good Clinical Impression: Dental abscess, Dental caries extending into dentin Fracture of tooth Qualifiers: Encounter type: subsequent encounter Fracture type: open Fracture healing: with delayed healing Qualified Code(s): S02.5XXG - Fracture of tooth (traumatic) , subsequent encounter for fracture with delayed healing - Discharge Information Prescriptions: Amoxicillin/Potassium Clav [Augmentin 875-125 Tablet] 1 each PO BID #20 tablet Instructions: Tooth Injuries, Vzxo-ec-[facility] Referrals: Jesus Smith MD [Primary Care Provider] - Forms: ED Department Discharge Additional Instructions: The following information is given to patients seen in the emergency department who are being discharged to home. This information is to outline your options for follow-up care. We provide all patients seen in our emergency department with a follow-up referral. The need for follow-up, as well as the timing and circumstances, are variable depending upon the specifics of your emergency department visit. If you don't have a primary care physician on staff, we will provide you with a referral. We always advise you to contact your personal physician following an emergency department visit to inform them of the circumstance of the visit and for follow-up with them and/or the need for any referrals to a consulting specialist. The emergency department will also refer you to a specialist when appropriate. This referral assures that you have the opportunity for followup care with a specialist. All of these measure are taken in an effort to provide you with optimal care, which includes your followup. Under all circumstances we always encourage you to contact your private physician who remains a resource for coordinating your care. When calling for followup care, please make the office aware that this follow-up is from your recent emergency room visit. If for any reason you are refused follow-up, please contact the [facility] emergency department at and asked to speak to the emergency department charge nurse. Some temporary cement was applied to your tooth to try to eliminate some of your pain from the air hitting the nerves that are exposed [facility]in twice daily #20 no refill Return as needed
[2017-10-29 17:13] VITALS: BP 137/78
== END 2017-10-29 14:56 | disposition home or self-care (01) ==
LOC: MW.ED 13:36
DX: K04.7 Periapical abscess without sinus (principal); K03.81 Cracked tooth; K02.9 Dental caries, unspecified
CPT/HCPCS: 99282

== ENCOUNTER 2018-08-22 09:49 | Emergency (ER) | payer MEDICAID ==
[2018-08-22] MEDS ORDERED: Lidocaine 1% 10 ML MDV INJECT ONE (09:55)
--- NOTE | 2018-08-22 09:55 | EDM.PDOC ---
ED HPI GENERAL MEDICAL PROBLEM - General Chief Complaint: Laceration Stated Complaint: injured finger Time Seen by Provider: 08/22/18 09:54 Source of Information: Reports: Patient - History of Present Illness INITIAL COMMENTS - FREE TEXT/NARRATIVE: HISTORY AND PHYSICAL: History of present illness: [Patient presents with an avulsion of tissue, she was cleaning a thermos cup at home and her sink and the cup broke avulsing a quarter inch diameter piece of tissue over the anatomical snuffbox, the lesion is not full-thickness however has bled well there is no suturing required] Review of systems: As per history of present illness and below otherwise all systems reviewed and negative. Past medical history: As per history of present illness and as reviewed below otherwise noncontributory. Surgical history: As per history of present illness and as reviewed below otherwise noncontributory. Social history: No reported history of drug or alcohol abuse. Family history: As per history of present illness and as reviewed below otherwise noncontributory. Physical exam: HEENT: Atraumatic, normocephalic, pupils reactive, negative for conjunctival pallor or scleral icterus, mucous membranes moist, throat clear, neck supple, nontender, trachea midline. Lungs: Clear to auscultation, breath sounds equal bilaterally, chest nontender. Heart: S1S2, regular, negative for clicks, rubs, or JVD. Abdomen: Soft, nondistended, nontender. Negative for masses or hepatosplenomegaly. Negative for costovertebral tenderness. Pelvis: Stable nontender. Genitourinary: Deferred. Rectal: Deferred. Extremities: Atraumatic, negative for cords or calf pain. Neurovascular unremarkable. Neuro: Awake, alert, oriented. Cranial nerves II through XII unremarkable. Cerebellum unremarkable. Motor and sensory unremarkable throughout. Exam nonfocal. Skin as per history of present illness otherwise unremarkable Diagnostics: [Clinical] Therapeutics: Wound cleansed and explored Tetanus status up-to-date on file] No sutures required Bacitracin and bandaging Tender wound care instruction Impression: Avulsion of tissue, 5 mm diameter Definitive disposition and diagnosis as appropriate pending reevaluation and review of above. right thumb Pain Score (Numeric/FACES): 2 - Related Data Allergies Allergy/AdvReac Type Severity Reaction Status Date / Time No Known Allergies Allergy Verified 10/29/17 13:42 Home Meds: Home Meds Venlafaxine [Effexor] 75 mg PO DAILY 10/02/13 [History] Past Medical History - Past Health History Medical/Surgical History: Denies Medical/Surgical History HEENT History: Reports: None Cardiovascular History: Reports: None Respiratory History: Reports: None Gastrointestinal History: Reports: None Musculoskeletal History: Reports: None Psychiatric History: Reports: Anxiety, Bipolar, Depression Endocrine/Metabolic History: Reports: Obesity/BMI 30+ Hematologic History: Reports: None Immunologic History: Reports: None Oncologic (Cancer) History: Reports: None - Infectious Disease History Infectious Disease History: Reports: Chicken Pox - Past Surgical History Head Surgeries/Procedures: Reports: None HEENT Surgical History: Reports: None Social & Family History - Family History Family Medical History: Noncontributory HEENT: Reports: None Cardiac: Reports: None Respiratory: Reports: None GI: Reports: None OBGYN: Reports: None Musculoskeletal: Reports: None Neurological: Reports: None Psychiatric: Reports: None Endocrine/Metabolic: Reports: Diabetes, type II Immunologic: Reports: None Dermatologic: Reports: None Oncologic: Reports: None - Caffeine Use Caffeine Use: Reports: Soda ED ROS GENERAL - Review of Systems Review Of Systems: See Below ED EXAM, SKIN/RASH Exam: See Below Course - Vital Signs Last Recorded V/S: Last Vital Signs Temp 98.5 F 08/22/18 10:00 Pulse 93 08/22/18 10:00 Resp 18 08/22/18 10:00 BP 150/93 H 08/22/18 10:00 Pulse Ox 97 08/22/18 10:00 - Orders/Labs/Meds Meds: Medications Discontinued Medications Generic Name Dose Route Start Last Admin Trade Name Roberto PRN Reason Stop Dose Admin Lidocaine HCl Confirm 08/22/18 10:04 Xylocaine-Mpf 1% Administered 08/22/18 10:05 Dose 5 mls @ as directed .ROUTE .STK-MED ONE Lidocaine HCl 5 ml 08/22/18 09:55 Xylocaine 1% INJECT 08/22/18 09:56 ONETIME ONE Lidocaine HCl 5 ml 08/22/18 10:05 Xylocaine-Mpf 1% INJECT 08/22/18 10:06 ONETIME ONE Departure - Departure Time of Disposition: 10:14 Disposition: Home, Self-Care 01 Condition: Good Clinical Impression: Avulsion of soft tissue - Discharge Information Referrals: PCP,Unknown [Primary Care Provider] - Forms: ED Department Discharge Additional Instructions: The following information is given to patients seen in the emergency department who are being discharged to home. This information is to outline your options for follow-up care. We provide all patients seen in our emergency department with a follow-up referral. The need for follow-up, as well as the timing and circumstances, are variable depending upon the specifics of your emergency department visit. If you don't have a primary care physician on staff, we will provide you with a referral. We always advise you to contact your personal physician following an emergency department visit to inform them of the circumstance of the visit and for follow-up with them and/or the need for any referrals to a consulting specialist. The emergency department will also refer you to a specialist when appropriate. This referral assures that you have the opportunity for follow-up care with a specialist. All of these measure are taken in an effort to provide you with optimal care, which includes your follow-up. Under all circumstances we always encourage you to contact your private physician who remains a resource for coordinating your care. When calling for follow-up care, please make the office aware that this follow-up is from your recent emergency room visit. If for any reason you are refused follow-up, please contact the [facility] emergency department at and asked to speak to the emergency department charge nurse.
[2018-08-22] MEDS ORDERED: Lidocaine 1% 0 ML ONE (10:04)
[2018-08-22] MEDS ORDERED: Bacitracin Oint 1 GM U/D Packet TOP ONE (10:34)
[2018-08-22 10:47] VITALS: BP 126/81
== END 2018-08-22 10:40 | disposition home or self-care (01) ==
LOC: MW.ED 09:49
DX: S61.011A Laceration without foreign body of right thumb without damage to nail, initial encounter (principal); F41.9 Anxiety disorder, unspecified; F31.9 Bipolar disorder, unspecified; Z79.899 Other long term (current) drug therapy; W26.8XXA Contact with other sharp object(s), not elsewhere classified, initial encounter
CPT/HCPCS: 99282

== ENCOUNTER 2018-08-31 22:25 | Emergency (ER) | payer MEDICAID ==
--- NOTE | 2018-08-31 22:44 | EDM.PDOC ---
ED HPI GENERAL MEDICAL PROBLEM - General Chief Complaint: General Stated Complaint: PT LIGHTHEADED Time Seen by Provider: 08/31/18 22:39 - History of Present Illness INITIAL COMMENTS - FREE TEXT/NARRATIVE: HISTORY AND PHYSICAL: History of present illness: Patient 27-year-old female presents with concern of mild dizziness she denies chest pain shortness of breath denies denies abdominal pain or other concern. Review of systems: As per history of present illness and below otherwise all systems reviewed and negative. Past medical history: As per history of present illness and as reviewed below otherwise noncontributory. Surgical history: As per history of present illness and as reviewed below otherwise noncontributory. Social history: No reported history of drug or alcohol abuse. Family history: As per history of present illness and as reviewed below otherwise noncontributory. Physical exam: HEENT: Atraumatic, normocephalic, pupils reactive, negative for conjunctival pallor or scleral icterus, mucous membranes moist, throat clear, neck supple, nontender, trachea midline. Lungs: Clear to auscultation, breath sounds equal bilaterally, chest nontender. Heart: S1S2, regular, negative for clicks, rubs, or JVD. Abdomen: Soft, nondistended, nontender. Negative for masses or hepatosplenomegaly. Negative for costovertebral tenderness. Pelvis: Stable nontender. Genitourinary: Deferred. Rectal: Deferred. Extremities: Atraumatic, negative for cords or calf pain. Neurovascular unremarkable. Neuro: Awake, alert, oriented. Cranial nerves II through XII unremarkable. Cerebellum unremarkable. Motor and sensory unremarkable throughout. Exam nonfocal. Diagnostics: CBC CMP hCG EKG Therapeutics: None Impression: # 1 medical screening exam Definitive disposition and diagnosis as appropriate pending reevaluation and review of above. 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 Musculoskeletal History: Reports: None Neurological History: Reports: None Psychiatric History: Reports: Anxiety, Bipolar, Depression Endocrine/Metabolic History: Reports: Obesity/BMI 30+ Hematologic History: Reports: None Immunologic History: Reports: None Oncologic (Cancer) History: Reports: None Dermatologic History: Reports: None - Infectious Disease History Infectious Disease History: Reports: Chicken Pox - Past Surgical History Head Surgeries/Procedures: Reports: None HEENT Surgical History: Reports: None Social & Family History - Family History Family Medical History: Noncontributory HEENT: Reports: None Cardiac: Reports: None Respiratory: Reports: None GI: Reports: None OBGYN: Reports: None Musculoskeletal: Reports: None Neurological: Reports: None Psychiatric: Reports: None Endocrine/Metabolic: Reports: Diabetes, type II Immunologic: Reports: None Dermatologic: Reports: None Oncologic: Reports: None - Tobacco Use Smoking Status *Q: Current Every Day Smoker Years of Tobacco use: 8 Packs/Tins Daily: 0.5 - Caffeine Use Caffeine Use: Reports: Soda - Recreational Drug Use Recreational Drug Use: No ED ROS GENERAL - Review of Systems Review Of Systems: ROS reveals no pertinent complaints other than HPI. ED EXAM, GENERAL - Physical Exam Exam: See Below (See dictation) Course - Vital Signs Last Recorded V/S: Last Vital Signs Temp 35.9 C 08/31/18 22:34 Pulse 98 08/31/18 22:34 Resp BP 147/93 H 08/31/18 22:34 Pulse Ox 97 08/31/18 22:34 - Orders/Labs/Meds Orders: Active Orders 24 hr Category Date Time Status EKG Documentation Completion [RC] STAT Care 08/31/18 22:42 Ordered CBC WITH AUTO DIFF [HEME] Stat Lab 08/31/18 22:42 Ordered COMPREHENSIVE METABOLIC PN,CMP [CHEM] Stat Lab 08/31/18 22:42 Ordered HCG QUALITATIVE,SERUM [CHEM] Stat Lab 08/31/18 22:42 Ordered Departure - Departure Time of Disposition: 22:43 Disposition: Home, Self-Care 01 Condition: Good Clinical Impression: Encounter for medical screening examination - Discharge Information Referrals: PCP,None [Primary Care Provider] - Additional Instructions: The following information is given to patients seen in the emergency department who are being discharged to home. This information is to outline your options for follow-up care. We provide all patients seen in our emergency department with a follow-up referral. The need for follow-up, as well as the timing and circumstances, are variable depending upon the specifics of your emergency department visit. If you don't have a primary care physician on staff, we will provide you with a referral. We always advise you to contact your personal physician following an emergency department visit to inform them of the circumstance of the visit and for follow-up with them and/or the need for any referrals to a consulting specialist. The emergency department will also refer you to a specialist when appropriate. This referral assures that you have the opportunity for followup care with a specialist. All of these measure are taken in an effort to provide you with optimal care, which includes your followup. Under all circumstances we always encourage you to contact your private physician who remains a resource for coordinating your care. When calling for followup care, please make the office aware that this follow-up is from your recent emergency room visit. If for any reason you are refused follow-up, please contact the [facility] emergency department at and asked to speak to the emergency department charge nurse. Follow-up primary medical doctor as needed as discussed push fluids return as needed as discussed - My Orders Last 24 Hours: My Active Orders 08/31/18 22:42 EKG Documentation Completion [RC] STAT CBC WITH AUTO DIFF [HEME] Stat COMPREHENSIVE METABOLIC PN,CMP [CHEM] Stat HCG QUALITATIVE,SERUM [CHEM] Stat - Assessment/Plan Last 24 Hours: My Active Orders 08/31/18 22:42 EKG Documentation Completion [RC] STAT CBC WITH AUTO DIFF [HEME] Stat COMPREHENSIVE METABOLIC PN,CMP [CHEM] Stat HCG QUALITATIVE,SERUM [CHEM] Stat
[2018-08-31 23:23] LABS: CHLORIDE,CL 101 mmol/L (98-107); SODIUM,NA 136 mmol/L (136-145)
[2018-09-01 00:44] VITALS: BP 126/82
== END 2018-08-31 23:40 | disposition home or self-care (01) ==
LOC: MW.ED 22:25
DX: Z13.9 Encounter for screening, unspecified (principal); F17.210 Nicotine dependence, cigarettes, uncomplicated; F31.9 Bipolar disorder, unspecified; F41.9 Anxiety disorder, unspecified; Z79.899 Other long term (current) drug therapy
CPT/HCPCS: 36415; 80053; 84703; 85025; 93005; 99284-25

== ENCOUNTER 2018-10-29 23:14 | Emergency (ER) | payer MEDICAID ==
[2018-10-29] MEDS ORDERED: Ketorolac 60 MG/2 ML SDV IM ONE (23:46)
--- NOTE | 2018-10-29 23:49 | EDM.PDOC ---
ED HPI GENERAL MEDICAL PROBLEM - General Chief Complaint: Neck Problem Stated Complaint: HARD TIME MOVING NECK Time Seen by Provider: 10/29/18 23:46 Source of Information: Reports: Patient - History of Present Illness INITIAL COMMENTS - FREE TEXT/NARRATIVE: HISTORY AND PHYSICAL: History of present illness: []Patient presents with neck pain right greater than left, 5 out of 10 nonradiating, worsened by movement, patient denies trauma or injury No fever nausea vomiting chills sweats no chest pain shortness breath dizziness or palpitation no bowel or urine mild headache associated noise sensitivity Able to reproduce symptoms in the right trapezius distribution as well as SCM Review of systems: As per history of present illness and below otherwise all systems reviewed and negative. Past medical history: As per history of present illness and as reviewed below otherwise noncontributory. Surgical history: As per history of present illness and as reviewed below otherwise noncontributory. Social history: No reported history of drug or alcohol abuse. Family history: As per history of present illness and as reviewed below otherwise noncontributory. Physical exam: HEENT: Atraumatic, normocephalic, pupils reactive, negative for conjunctival pallor or scleral icterus, mucous membranes moist, throat clear, neck supple, nontender, trachea midline. Supple spasm noted right trapezius distribution right SCM L symptoms over left in general signs Lungs: Clear to auscultation, breath sounds equal bilaterally, chest nontender. Heart: S1S2, regular, negative for clicks, rubs, or JVD. Abdomen: Soft, nondistended, nontender. Negative for masses or hepatosplenomegaly. Negative for costovertebral tenderness. Pelvis: Stable nontender. Genitourinary: Deferred. Rectal: Deferred. Extremities: Atraumatic, negative for cords or calf pain. Neurovascular unremarkable. Neuro: Awake, alert, oriented. Cranial nerves II through XII unremarkable. Cerebellum unremarkable. Motor and sensory unremarkable throughout. Exam nonfocal. Diagnostics: [Clinical ] Therapeutics: [Toradol 60 IM Cataflam Flexeril ] Impression: [ muscle spasm ] Definitive disposition and diagnosis as appropriate pending reevaluation and review of above. 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 Musculoskeletal History: Reports: None Neurological History: Reports: None Psychiatric History: Reports: Anxiety, Bipolar, Depression Endocrine/Metabolic History: Reports: Obesity/BMI 30+ Hematologic History: Reports: None Immunologic History: Reports: None Oncologic (Cancer) History: Reports: None Dermatologic History: Reports: None - Infectious Disease History Infectious Disease History: Reports: Chicken Pox - Past Surgical History Head Surgeries/Procedures: Reports: None HEENT Surgical History: Reports: None Social & Family History - Family History Family Medical History: Noncontributory HEENT: Reports: None Cardiac: Reports: None Respiratory: Reports: None GI: Reports: None OBGYN: Reports: None Musculoskeletal: Reports: None Neurological: Reports: None Psychiatric: Reports: None Endocrine/Metabolic: Reports: Diabetes, type II Immunologic: Reports: None Dermatologic: Reports: None Oncologic: Reports: None - Tobacco Use Smoking Status *Q: Current Every Day Smoker Years of Tobacco use: 10 Packs/Tins Daily: 1 - Caffeine Use Caffeine Use: Reports: Soda - Recreational Drug Use Recreational Drug Use: No ED ROS GENERAL - Review of Systems Review Of Systems: See Below ED EXAM, GENERAL - Physical Exam Exam: See Below Course - Vital Signs Last Recorded V/S: Last Vital Signs Temp 97.5 F 10/29/18 23:19 Pulse 85 10/29/18 23:19 Resp 18 10/29/18 23:19 BP 156/84 H 10/29/18 23:19 Pulse Ox 98 10/29/18 23:19 - Orders/Labs/Meds Orders: Active Orders 24 hr Category Date Time Status Ketorolac [Toradol] Med 10/29/18 23:46 Once 60 mg IM ONETIME ONE Departure - Departure Time of Disposition: 23:48 Disposition: Home, Self-Care 01 Condition: Good Clinical Impression: Muscle spasm - Discharge Information Referrals: PCP,None [Primary Care Provider] - Additional Instructions: The following information is given to patients seen in the emergency department who are being discharged to home. This information is to outline your options for follow-up care. We provide all patients seen in our emergency department with a follow-up referral. The need for follow-up, as well as the timing and circumstances, are variable depending upon the specifics of your emergency department visit. If you don't have a primary care physician on staff, we will provide you with a referral. We always advise you to contact your personal physician following an emergency department visit to inform them of the circumstance of the visit and for follow-up with them and/or the need for any referrals to a consulting specialist. The emergency department will also refer you to a specialist when appropriate. This referral assures that you have the opportunity for follow-up care with a specialist. All of these measure are taken in an effort to provide you with optimal care, which includes your follow-up. Under all circumstances we always encourage you to contact your private physician who remains a resource for coordinating your care. When calling for follow-up care, please make the office aware that this follow-up is from your recent emergency room visit. If for any reason you are refused follow-up, please contact the [facility] emergency department at and asked to speak to the emergency department charge nurse. - My Orders Last 24 Hours: My Active Orders 10/29/18 23:46 Ketorolac [Toradol] 60 mg IM ONETIME ONE - Assessment/Plan Last 24 Hours: My Active Orders 10/29/18 23:46 Ketorolac [Toradol] 60 mg IM ONETIME ONE
[2018-10-30 00:18] VITALS: BP 154/95
== END 2018-10-30 00:15 | disposition home or self-care (01) ==
LOC: MW.ED 23:14
DX: M62.838 Other muscle spasm (principal); F31.9 Bipolar disorder, unspecified; F17.210 Nicotine dependence, cigarettes, uncomplicated; Z79.899 Other long term (current) drug therapy
CPT/HCPCS: 96372; 99283; J1885

== ENCOUNTER 2020-03-06 17:24 | Emergency (ER) | payer SELFPAY ==
[2020-03-06] MEDS ORDERED: Sodium Chloride 0.9% 10 ML Syringe FLUSH PRN (17:25)
[2020-03-06] MEDS ORDERED: Sodium Chloride 0.9% 2.5 ML Syringe FLUSH PRN (17:25)
[2020-03-06 17:43] VITALS: PULSE 80
[2020-03-06] MEDS ORDERED: Ibuprofen 400 MG Tab PO ONE (18:06)
[2020-03-06] MEDS ORDERED: Lidocaine 5% 700 MG Patch TOP ONE (18:06)
[2020-03-06] MEDS ORDERED: oxyCODONE 5 MG Tab PO ONE (18:06)
[2020-03-06 18:19] VITALS: BP 130/76
--- NOTE | 2020-03-06 19:19 | EDM.PDOC ---
ED HPI GENERAL MEDICAL PROBLEM - General Chief Complaint: Upper Extremity Injury/Pain Stated Complaint: LEFT SHOULDER/ARM PAIN RADIATING Time Seen by Provider: 03/06/20 17:25 Source of Information: Reports: Patient History Limitations: Reports: No Limitations - History of Present Illness INITIAL COMMENTS - FREE TEXT/NARRATIVE: This is a very pleasant 29-year-old female with a past medical history of diabetes mellitus and hypertension presenting with left shoulder pain. Patient states that 2 days ago she was lifting a heavy box. Afterwards, she began experiencing pain to the muscles of the anterior shoulder and the left anterior chest. Pain is described as "aching", worse with movement and better with rest. She denies any central or substernal chest discomfort denies any shortness of breath. Denies any numbness or weakness the left upper extremity. She is intermittently taking Tylenol without much relief. No other complaints. Past medical history: Reviewed, no additional pertinent history. Surgical history: Reviewed in system, no additional pertinent history. Social history: Reviewed in system, no additional pertinent history. Family history: Reviewed in system, no additional pertinent history. PHYSICAL EXAM Vital signs reviewed. Nursing notes reviewed. Constitutional: Awake, alert, non-distressed. Head: Normocephalic, atraumatic. Eyes: EOMI, conjunctiva normal, no discharge, no scleral icterus. Ears, Nose, Throat: External ears and nose normal, moist oral mucosa. Cardiovascular: 2+ bilateral radial pulses, capillary refill less than 2 seconds. Pulmonary: normal work of breathing, no accessory muscle use. Abdomen/GI: Soft, nontender, nondistended, no guarding or rigidity, no masses. Musculoskeletal: No deformities. Mild tenderness to palpation of the muscles of the anterior shoulder girdle and the muscles of the left anterior chest Integumentary: Appropriate color for ethnicity, warm, dry, no pallor or jaundice, no rash. Neurologic: Alert, answering questions appropriately, normal speech, no facial droop, moving all extremities well. 5/5 strength of bilateral upper extremities. Sensation intact to light touch the bilateral upper extremities. Psychiatric: Appropriate mood and affect, normal thought process. L shoulder Pain Score (Numeric/FACES): 10 - Related Data Allergies Allergy/AdvReac Type Severity Reaction Status Date / Time No Known Allergies Allergy Verified 03/06/20 17:42 Home Meds: Home Meds Venlafaxine [Effexor] 75 mg PO DAILY 10/02/13 [History] lisinopriL [Lisinopril] 0 mg PO DAILY 03/06/20 [History] metFORMIN [Glucophage XR] 500 mg PO BID 03/06/20 [History] Past Medical History - Past Health History Medical/Surgical History: Denies Medical/Surgical History HEENT History: Reports: Impaired Vision Cardiovascular History: Reports: Hypertension Respiratory History: Reports: None Gastrointestinal History: Reports: None Genitourinary History: Reports: None 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 Musculoskeletal History: Reports: None Neurological History: Reports: None Psychiatric History: Reports: Anxiety, Bipolar, Depression Endocrine/Metabolic History: Reports: Obesity/BMI 30+ Hematologic History: Reports: None Immunologic History: Reports: None Oncologic (Cancer) History: Reports: None Dermatologic History: Reports: None - Infectious Disease History Infectious Disease History: Reports: Chicken Pox - Past Surgical History Head Surgeries/Procedures: Reports: None HEENT Surgical History: Reports: None Cardiovascular Surgical History: Reports: None Endocrine Surgical History: Reports: None Social & Family History - Family History Family Medical History: Noncontributory HEENT: Reports: None Cardiac: Reports: None Respiratory: Reports: None GI: Reports: None OBGYN: Reports: None Musculoskeletal: Reports: None Neurological: Reports: None Psychiatric: Reports: None Endocrine/Metabolic: Reports: Diabetes, type II Immunologic: Reports: None Dermatologic: Reports: None Oncologic: Reports: None - Tobacco Use Tobacco Use Status *Q: Current Every Day Tobacco User Years of Tobacco use: 10 Packs/Tins Daily: 1 - Caffeine Use Caffeine Use: Reports: Soda - Recreational Drug Use Recreational Drug Use: No Review of Systems - Review of Systems Review Of Systems: See Below ED EXAM, GENERAL - Physical Exam Exam: See Below Course - Vital Signs Text/Narrative:: Patient hemodynamically stable, afebrile, well-appearing, looks nontoxic. Examination and history are consistent with a muscle strain of the muscles of the shoulder girdle and the pectoralis muscle. Low suspicion for acute coronary syndrome, no substernal chest pain, no shortness of breath, muscles are tender and worse with movement and palpation. Patient felt much better with a lidocaine patch and oral pain medications - pain totally resolved. Patient is stable to discharge home. Recommended [id number] acetaminophen, ibuprofen, lidocaine patches, and a heating pad. Recommended primary care follow-up in a few days. Patient requesting a simple sling for pain relief and comfort. Duration: 1 month. Plan: Patient is stable to discharge home with outpatient primary care clinic follow-up. Strict emergency department return precautions were provided, patient indicated understanding. All questions were answered prior to departure. Discharged in good condition. Last Recorded V/S: Last Vital Signs Temp 36.3 C 03/06/20 18:18 Pulse 80 03/06/20 18:18 Resp 18 03/06/20 18:18 BP 130/76 03/06/20 18:18 Pulse Ox 98 03/06/20 18:18 - Orders/Labs/Meds Orders: Active Orders 24 hr Category Date Time Status Pulse Oximetry [RC] ASDIRECTED Care 03/06/20 17:25 Active Sodium Chloride 0.9% [Saline Flush] Med 03/06/20 17:25 Active 10 ml FLUSH ASDIRECTED PRN Sodium Chloride 0.9% [Saline Flush] Med 03/06/20 17:25 Active 2.5 ml FLUSH ASDIRECTED PRN Saline Lock Insert [OM.PC] Stat Oth 03/06/20 17:25 Ordered Medication Orders Sodium Chloride (Saline Flush) 10 ml FLUSH ASDIRECTED PRN PRN Reason: Keep Vein Open Sodium Chloride (Saline Flush) 2.5 ml FLUSH ASDIRECTED PRN PRN Reason: Keep Vein Open Meds: Medications Generic Name Dose Route Start Last Admin Trade Name Freq PRN Reason Stop Dose Admin Sodium Chloride 10 ml 03/06/20 17:25 Saline Flush FLUSH ASDIRECTED PRN Keep Vein Open Sodium Chloride 2.5 ml 03/06/20 17:25 Saline Flush FLUSH ASDIRECTED PRN Keep Vein Open Discontinued Medications Generic Name Dose Route Start Last Admin Trade Name Freq PRN Reason Stop Dose Admin Ibuprofen 400 mg 03/06/20 18:06 10/25/20 18:17 Motrin PO 03/06/20 18:07 400 mg ONETIME ONE Administration Lidocaine 700 mg 03/06/20 18:06 03/06/20 18:17 Lidoderm 5% TOP 03/06/20 18:07 700 mg ONETIME ONE Administration Oxycodone HCl 10 mg 03/06/20 18:06 03/06/20 18:17 Oxycodone PO 03/06/20 18:07 10 mg ONETIME ONE Administration Departure - Departure Time of Disposition: 19:17 Disposition: Home, Self-Care 01 Condition: Good Clinical Impression: Muscle strain, shoulder region Qualifiers: Encounter type: initial encounter Laterality: left Qualified Code(s): S46.912A - Strain of unspecified muscle, fascia and tendon at shoulder and upper arm level, left arm, initial encounter - Discharge Information *PRESCRIPTION DRUG MONITORING PROGRAM REVIEWED*: Not Applicable *COPY OF PRESCRIPTION DRUG MONITORING REPORT IN PATIENT NIURKA: Not Applicable Instructions: Muscle Strain, [id number], Shoulder Pain, [id number], How To Use a Sling, [id number]-[id number] Referrals: [facility] [Provider Group] - 1 Week (As needed for follow-up of symptoms.) Additional Instructions: You were seen in the emergency department for shoulder pain. Your symptoms are consistent with a muscle strain. Treatment is symptomatic. I recommend [id number] extra strength acetaminophen (1000 mg every 6 hours) and ibuprofen (400 mg every 6 hours) to help treat your pain. I also recommend [id number] lidocaine patches and heating pad. We are going to give you a shoulder sling for comfort per your request. Please follow-up with a primary medical doctor the next week or so for reevaluation if your symptoms have not subsided. Come back to the ER if your pain becomes much worse or if you have any pain in the center of your chest or any trouble breathing. Please return the emergency department immediately if your symptoms worsen or if you feel worse. Thank you for choosing the [facility] emergency department in [place] for your medical needs today. It was a pleasure caring for you. The following information is given to patients seen in the emergency department who are being discharged. This information is to outline your options for follow-up care. We provide all patients seen in our emergency department with a follow-up referral. The need for follow-up, as well as the timing and circumstances, are variable depending upon the specifics of your emergency department visit. If you don't have a primary care physician on staff, we will provide you with a referral. We always advise you to contact your personal physician following an emergency department visit to inform them of the circumstance of the visit and for follow-up with them and/or the need for any referrals to a consulting specialist. The emergency department will also refer you to a specialist when appropriate. This referral assures that you have the opportunity for follow-up care with a specialist. All of these measure are taken in an effort to provide you with optimal care, which includes your follow-up. Under all circumstances we always encourage you to contact your private physician who remains a resource for coordinating your care. When calling for follow-up care, please make the office aware that this follow-up is from your recent emergency room visit. If for any reason you are refused follow-up, please contact the [facility] Emergency Department at and asked to speak to the emergency department charge nurse. If you do not have a primary care physician that is caring for you, you can contact these clinics below to set up an appointment to establish care: [facility] - Primary Care [address] [place] [id number] [address] Sepsis Event Note (ED) - Evaluation Sepsis Screening Result: No Definite Risk - Focused Exam Vital Signs: Vital Signs Temp Pulse Resp BP Pulse Ox 03/06/20 18:18 36.3 C 80 18 130/76 98 03/06/20 17:38 36.6 C 80 19 142/89 H 97 - My Orders Last 24 Hours: My Active Orders 03/06/20 17:25 Pulse Oximetry [RC] ASDIRECTED Sodium Chloride 0.9% [Saline Flush] 10 ml FLUSH ASDIRECTED PRN Sodium Chloride 0.9% [Saline Flush] 2.5 ml FLUSH ASDIRECTED PRN Saline Lock Insert [OM.PC] Stat - Assessment/Plan Last 24 Hours: My Active Orders 03/06/20 17:25 Pulse Oximetry [RC] ASDIRECTED Sodium Chloride 0.9% [Saline Flush] 10 ml FLUSH ASDIRECTED PRN Sodium Chloride 0.9% [Saline Flush] 2.5 ml FLUSH ASDIRECTED PRN Saline Lock Insert [OM.PC] Stat
== END 2020-03-06 19:29 | disposition home or self-care (01) ==
LOC: MW.ED 17:24
DX: S46.912A Strain of unspecified muscle, fascia and tendon at shoulder and upper arm level, left arm, initial encounter (principal); E11.9 Type 2 diabetes mellitus without complications; I10 Essential (primary) hypertension; F31.9 Bipolar disorder, unspecified; F41.9 Anxiety disorder, unspecified; F17.210 Nicotine dependence, cigarettes, uncomplicated; E66.9 Obesity, unspecified; Z79.899 Other long term (current) drug therapy; X50.9XXA Other and unspecified overexertion or strenuous movements or postures, initial encounter
CPT/HCPCS: 99283; A9270

== ENCOUNTER 2020-12-05 17:52 | Emergency (ER) | payer MEDICAID ==
[2020-12-05] MEDS ORDERED: Sodium Chloride 0.9% 2.5 ML Syringe FLUSH PRN (18:06)
[2020-12-05] MEDS ORDERED: Sodium Chloride 0.9% 10 ML Syringe FLUSH PRN (18:06)
--- NOTE | 2020-12-05 18:08 | EDM.PDOC ---
<Sal Pennington - Last Filed: 12/05/20 18:45> ED HPI GENERAL MEDICAL PROBLEM - General Chief Complaint: Chest Pain Stated Complaint: CHEST PAINS Time Seen by Provider: 12/05/20 17:59 - History of Present Illness INITIAL COMMENTS - FREE TEXT/NARRATIVE: 30yoF with a h/o HTN and DM prsenting with chest pain. The patient has an anterior chest soreness and aching that worsens with movement of arms and chest. No SOB, no nausea or vomiting, no diaphoresis, fatigue lightheadedness, syncope or near syncope. No fevers, chills or cough. 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 She does sometimes carry heavy bags or mop. However, she does not recall any specific mechanism of injury for the chest. She did have a stressful encounter with someone last night at work. However, she states that she is not concerned about that at this time. She thinks she has put it behind her. No h/o CAD or other cardiac process. Sx do not worsen with exertion. chest Pain Score (Numeric/FACES): 10 - Related Data Allergies Allergy/AdvReac Type Severity Reaction Status Date / Time No Known Allergies Allergy Verified 12/05/20 17:53 Home Meds: Home Meds Venlafaxine [Effexor] 75 mg PO DAILY 10/02/13 [History] lisinopriL [Lisinopril] 0 mg PO DAILY 03/06/20 [History] metFORMIN [Glucophage XR] 1,000 mg PO BID 03/06/20 [History] Past Medical History - Past Health History Medical/Surgical History: Denies Medical/Surgical History HEENT History: Reports: Impaired Vision Cardiovascular History: Reports: Hypertension Respiratory History: Reports: None Gastrointestinal History: Reports: None Genitourinary History: Reports: None 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 Musculoskeletal History: Reports: None Neurological History: Reports: None Psychiatric History: Reports: Anxiety, Bipolar, Depression Endocrine/Metabolic History: Reports: Obesity/BMI 30+ Hematologic History: Reports: None Immunologic History: Reports: None Oncologic (Cancer) History: Reports: None Dermatologic History: Reports: None - Infectious Disease History Infectious Disease History: Reports: Chicken Pox - Past Surgical History Head Surgeries/Procedures: Reports: None HEENT Surgical History: Reports: None Cardiovascular Surgical History: Reports: None Endocrine Surgical History: Reports: None Social & Family History - Family History Family Medical History: No Pertinent Family History HEENT: Reports: None Cardiac: Reports: None Respiratory: Reports: None GI: Reports: None OBGYN: Reports: None Musculoskeletal: Reports: None Neurological: Reports: None Psychiatric: Reports: None Endocrine/Metabolic: Reports: Diabetes, type II Immunologic: Reports: None Dermatologic: Reports: None Oncologic: Reports: None - Tobacco Use Tobacco Use Status *Q: Current Every Day Tobacco User Years of Tobacco use: 11 Packs/Tins Daily: 0.5 - Caffeine Use Caffeine Use: Reports: Soda - Recreational Drug Use Recreational Drug Use: No ED ROS GENERAL - Review of Systems Review Of Systems: See Below Free Text/Narrative/Comment: General: No fever. Skin: No rash. Eyes: No vision problems. ENT: No sore throat. Neck: No neck stiffness. Respiratory: No shortness of breath. Cardiac: per HPI Gastrointestinal: No nausea, vomiting or abdominal pain. Musculoskeletal: No myalgias/arthralgias. Neurologic: No headache. ED EXAM, GENERAL - Physical Exam Exam: See Below Free Text/Narrative:: General Appearance: No acute distress, appears comfortable HEENT: Normocephalic/atraumatic, sclera anicteric, mucous membranes moist Neck: Normal range of motion Lungs: Bilateral breath sounds, clear to auscultation Chest: anterior chest soreness over bilateral pec major attachments, no contusion or palpable deformity, significant pain and some pain related weakness with bilateral pec strength testing Cardiovascular: Regular rate and rhythm, no murmur Abdomen: Soft, non-tender Back: Normal Musculoskeletal: No edema or tenderness Neurologic: Awake, alert, no obvious deficits, moving all extremities Psychiatric: Appropriate, cooperative #1 Interpretation EKG Date: 12/05/20 Time: 18:06 EKG Interpretation Comments: NSR rate of 90, normal axis and intervals, no acute ischemia, normal EKG Departure - Departure Disposition: Home, Self-Care 01 Clinical Impression: Chest pain Qualifiers: Chest pain type: unspecified Qualified Code(s): R07.9 - Chest pain, unspecified - Discharge Information Instructions: Nonspecific Chest Pain, Adult [facility]errals: [facility] [Primary [facility]] - Forms: ED Department Discharge Additional Instructions: Your labs and imaging were normal. Your pain is likely musculoskeletal in nature. You can take motrin and tylenol to help with your pain. Please follow-up with your primary care provider. If you experience worsening chest pain or difficulty breathing, please return to the ER. The following information is given to patients seen in the emergency department who are being discharged to home. This information is to outline your options for follow-up care. We provide all patients seen in our emergency department with a follow-up referral. The need for follow-up, as well as the timing and circumstances, are variable depending upon the specifics of your emergency department visit. If you don't have a primary care physician on staff, we will provide you with a referral. We always advise you to contact your personal physician following an emergency department visit to inform them of the circumstance of the visit and for follow-up with them and/or the need for any referrals to a consulting specialist. The emergency department will also refer you to a specialist when appropriate. This referral assures that you have the opportunity for follow-up care with a specialist. All of these measure are taken in an effort to provide you with optimal care, which includes your follow-up. Under all circumstances we always encourage you to contact your private physician who remains a resource for coordinating your care. When calling for follow-up care, please make the office aware that this follow-up is from your recent emergency room visit. If for any reason you are refused follow-up, please contact the [facility] Emergency Department at and asked to speak to the emergency department charge nurse. [facility] [address] [place] [id number] [id number] Sepsis Event Note (ED) - Evaluation Sepsis Screening Result: No Definite Risk - Assessment/Plan Assessment:: 30yoF with signs and sx most consistent with musculoskeletal chest wall pain (given exam findings). Pt's EKG is normal. HEART score is 1. Pt is PERC negative. CXR to exclude pneumothorax and PNA. Single trop would be sufficient to exclude ACS. pt given Toradol for pain and if sx improve and labs / CXR reassuring patient will be safe for dc. Pt signed out to overnight provider pending labs and CXR results. <Indra Valdez - Last Filed: 12/05/20 19:15> Course - Vital Signs Last Recorded V/S: Last Vital Signs Temp 96.4 F L 12/05/20 17:53 Pulse 93 12/05/20 17:53 Resp 17 12/05/20 17:53 BP 152/87 H 12/05/20 17:53 Pulse Ox 98 12/05/20 17:53 - Orders/Labs/Meds Orders: Active Orders 24 hr Category Date Time Status Chest 2V [CR] Stat Exams 12/05/20 18:06 Taken Sodium Chloride 0.9% [Saline Flush] Med 12/05/20 18:06 Active 10 ml FLUSH ASDIRECTED PRN Sodium Chloride 0.9% [Saline Flush] Med 12/05/20 18:06 Active 2.5 ml FLUSH ASDIRECTED PRN Saline Lock Insert [OM.PC] Stat Oth 12/05/20 18:06 Ordered Medication Orders Sodium Chloride (Sodium Chloride 0.9% 10 Ml Syringe) 10 ml FLUSH ASDIRECTED PRN PRN Reason: Keep Vein Open Last Admin: 12/05/20 18:44 Dose: 10 ml Documented by: RUTHANN Sodium Chloride (Sodium Chloride 0.9% 2.5 Ml Syringe) 2.5 ml FLUSH ASDIRECTED PRN PRN Reason: Keep Vein Open Last Admin: 12/05/20 18:44 Dose: 2.5 ml Documented by: RUTHANN Labs: Laboratory Tests 12/05/20 12/05/20 Range/Units 18:30 18:30 WBC 14.02 H (4.0-11.0) K/uL RBC 4.50 (4.30-5.90) M/uL Hgb 12.6 (12.0-16.0) g/dL Hct 37.8 (36.0-46.0) % MCV 84.0 (80.0-98.0) fL MCH 28.0 (27.0-32.0) pg MCHC 33.3 (31.0-37.0) g/dL RDW Std Deviation 41.3 (28.0-62.0) fl RDW Coeff of Giselle 14 (11.0-15.0) % Plt Count 294 (150-400) K/uL MPV 10.00 (7.40-12.00) fL Neut % (Auto) 71.2 (48.0-80.0) % Lymph % (Auto) 20.9 (16.0-40.0) % Whitman % (Auto) 6.1 (0.0-15.0) % Eos % (Auto) 1.5 (0.0-7.0) % Baso % (Auto) 0.3 (0.0-1.5) % Neut # (Auto) 10.0 H (1.4-5.7) K/uL Lymph # (Auto) 2.9 H (0.6-2.4) K/uL Whitman # (Auto) 0.9 H (0.0-0.8) K/uL Eos # (Auto) 0.2 (0.0-0.7) K/uL Baso # (Auto) 0.0 (0.0-0.1) K/uL Nucleated RBC % 0.0 /100WBC Nucleated RBCs # 0 K/uL Sodium 138 (136-145) mmol/L Potassium 4.3 (3.5-5.1) mmol/L Chloride 101 (98-107) mmol/L Carbon Dioxide 23.6 (21.0-32.0) mmol/L BUN 15 (7.0-18.0) mg/dL Creatinine 0.7 (0.6-1.0) mg/dL Est Cr Clr Drug Dosing 115.32 mL/min Estimated GFR (MDRD) > 60.0 ml/min Glucose 138 H (74-106) mg/dL Calcium 8.6 (8.5-10.1) mg/dL Total Bilirubin 0.1 L (0.2-1.0) mg/dL AST 12 L (15-37) IU/L ALT 28 (14-63) IU/L Alkaline Phosphatase 81 (46-116) U/L Troponin I < 0.050 (0.000-0.056) ng/mL Total Protein 7.2 (6.4-8.2) g/dL Albumin 3.7 (3.4-5.0) g/dL Globulin 3.5 (2.6-4.0) g/dL Albumin/Globulin Ratio 1.1 (0.9-1.6) Meds: Medications Generic Name Dose Route Start Last Admin Trade Name Freq PRN Reason Stop Dose Admin Sodium Chloride 10 ml 12/05/20 18:06 12/05/20 18:44 Sodium Chloride 0.9% 10 Ml Syringe FLUSH 10 ml ASDIRECTED PRN Administration Keep Vein Open Sodium Chloride 2.5 ml 12/05/20 18:06 12/05/20 18:44 Sodium Chloride 0.9% 2.5 Ml Syringe FLUSH 2.5 ml ASDIRECTED PRN Administration Keep Vein Open Discontinued Medications Generic Name Dose Route Start Last Admin Trade Name Johnq PRN Reason Stop Dose Admin Ketorolac Tromethamine 15 mg 12/05/20 18:09 12/05/20 18:43 Ketorolac 30 Mg/Ml Sdv IVPUSH 12/05/20 18:10 15 mg ONETIME ONE Administration - Re-Assessments/Exams Free Text/Narrative Re-Assessment/Exam: 12/05/20 19:14 XR imaging and labs are unremarkable; will d/c patient home with PMD f/u Departure - Departure Time of Disposition: 19:14 Condition: Good Sepsis Event Note (ED) - Focused Exam Vital Signs: Vital Signs Temp Pulse Resp BP Pulse Ox 12/05/20 17:53 96.4 F L 93 17 152/87 H 98
[2020-12-05] MEDS ORDERED: Ketorolac 30 MG/ML SDV IVPUSH ONE (18:09)
[2020-12-05 19:00] LABS: BLOOD UREA NITROGEN,BUN 15 mg/dL (7.0-18.0); CARBON DIOXIDE,CO2 23.6 mmol/L (21.0-32.0); CHLORIDE,CL 101 mmol/L (98-107); GLUCOSE RANDOM 138 mg/dL (74-106); POTASSIUM,K 4.3 mmol/L (3.5-5.1); SODIUM,NA 138 mmol/L (136-145)
--- NOTE | 2020-12-05 19:23 | CR ---
For Patients: As a result of the Century Cures Act, medical imaging exams and procedure reports are released immediately into your electronic medical record. You may view this report before your referring provider. If you have questions, please contact your health care provider. INDICATION: chest pain TECHNIQUE: Chest 2 views. COMPARISON: 03/04/17 FINDINGS: Cardiovascular and mediastinum: Heart size and vasculature are normal in caliber and appearance. Mediastinum is within normal limits. Lungs and pleural spaces: Lungs are clear. No sign of infiltrate or mass. No sign of pleural effusion. No pneumothorax. Bones and soft tissues: No significant findings. IMPRESSION: Unremarkable chest. Dictated by: Driss Luna MD @ 12/05/2020 19:22:07 (Electronically Signed)
[2020-12-05 19:26] VITALS: BP 144/72; PULSE 82
== END 2020-12-05 19:26 | disposition home or self-care (01) ==
LOC: MW.ED 17:52
DX: R07.89 Other chest pain (principal); I10 Essential (primary) hypertension; E66.9 Obesity, unspecified; Z68.36 Body mass index [BMI] 36.0-36.9, adult; Z72.0 Tobacco use; Z79.899 Other long term (current) drug therapy
CPT/HCPCS: 36415; 71046; 80053; 84484; 85025; 93005; 96374; 99285; J1885

== ENCOUNTER 2021-04-14 20:28 | Emergency (ER) | payer MEDICAID ==
[2021-04-14 21:00] VITALS: PULSE 86
[2021-04-14] MEDS ORDERED: Ketorolac 30 MG/ML SDV IM ONE (21:33)
[2021-04-14] MEDS ORDERED: Amoxicillin/Clavulanate K 875-125 MG Tab PO ONE (21:43)
--- NOTE | 2021-04-14 21:47 | EDM.PDOC ---
ED HPI GENERAL MEDICAL PROBLEM - General Chief Complaint: ENT Problem Stated Complaint: TOOTHACHE Time Seen by Provider: 04/14/21 21:32 - History of Present Illness INITIAL COMMENTS - FREE TEXT/NARRATIVE: CHIEF COMPLAINT(S): Bad mouth pain HISTORY OF PRESENT ILLNESS: This is a 30-year-old woman without any reported past medical history who comes to the emergency department with a chief complaint of bad mouth pain. The patient states that for approximately 1 day now she has been experiencing bad mouth pain and right ear pain. She states that she feels like there is some swelling on her right lower jaw. She states that she has some cavities in that area and she thinks she has an infection. She states that the pain is rated 10 out of 10. She describes it as achy and throbbing. She states that she is tried "everything." This includes Tylenol, ibuprofen, aspirin. She states that she has never had this before. She denies any trouble swallowing, trismus, neck pain or neck stiffness. She denies any hearing loss or blurry vision. She denies any rash. She has the pain radiates from her jaw to her right ear. There are no relieving or exacerbating factors. REVIEW OF SYSTEMS: Constitutional: Denies fever, chills. Eyes: Denies eye pain Ears, Nose, Mouth, & Throat: Positive for right ear and right jaw pain. Cardiovascular: Denies chest pain Respiratory: Denies shortness of breath Gastrointestinal: Denies Nausea, vomiting, diarrhea, hematochezia. Genitourinary: Denies hematuria Skin:Denies a rash MSK: Denies joint pain Neurological: Denies blurred vision Psychiatric: Denies depression PAST MEDICAL HISTORY: As per history of present illness and as reviewed below otherwise noncontributory. SURGICAL HISTORY: As per history of present illness and as reviewed below otherwise noncontributory. SOCIAL HISTORY: As per history of present illness and as reviewed below otherwise noncontributory. FAMILY HISTORY: As per history of present illness and as reviewed below otherwise noncontributory. EXAMINATION OF ORGAN SYSTEMS/BODY AREAS: Constitutional: Blood pressure is 145/82, heart rate 86, respiratory rate 16 with an oxygen saturation 97% on room air. Temperature 36.4 General: Young woman who does not appear to be in acute distress Psychiatric: Appropriate mood and affect. Eyes: No scleral icterus or conjunctival erythema ENMT: Moist mucous membranes. No pharyngeal erythema multiple dental caries. No evidence of periapical abscess however there is tenderness along the molar on the right lower jaw. Bilateral tympanic membranes without any bulging or erythema. No evidence of submandibular swelling. No trismus, drooling, stridor. No postauricular tenderness. Cardiovascular: Regular, rate, and rhythm. No gallops, murmurs, or rubs. Bilateral upper extremity pulses symmetric and intact. No peripheral edema. No JVD. Respiratory: Lungs clear to auscultation bilaterally. No wheezes, rales, or rhonchi. Skin: No lesions or abrasions. Neurological: Alert, GCS 15 MEDICAL DECISION MAKING AND COURSE IN THE ED WITH INTERPRETATION/REVIEW OF DIAGNOSTIC STUDIES: This is a 30-year-old woman who comes to the emergency department with a chief complaint of right jaw pain with evidence of possible dental abscess versus dental carry who overall appears well without any red flag symptoms. At this time we will provide the patient with Toradol for pain relief. I did discuss that given she is driving I do not feel comfortable providing her with any narcotic pain medication. We will provide her with narcotics to use at home. We will give her first dose of her antibiotic here and discussed that we would send her antibiotic and pain medication to a different pharmacy however she states that she cannot have her prescription sent to her different pharmacy therefore I sent them to her of the pharmacy of her choice. She was instructed to return for any worsening symptoms and to follow- up with dentistry on Saturday. She was amenable to discharge and had no further questions DISPOSITION: The patient was discharged home in stable condition. The patient will follow up with dentist as soon as possible CONDITION: Fair PROCEDURES: None FINAL IMPRESSION(S)/DIAGNOSES: 1. Acute dental abscess versus dental caries Eddie Paulson M.D. Right Face/Facial Pain Score (Numeric/FACES): 10 - Related Data Allergies Allergy/AdvReac Type Severity Reaction Status Date / Time No Known Allergies Allergy Verified 04/14/21 20:56 Home Meds: Home Meds Venlafaxine [Effexor] 75 mg PO DAILY 10/02/13 [History] lisinopriL [Lisinopril] 0 mg PO DAILY 03/06/20 [History] metFORMIN [Glucophage XR] 1,000 mg PO BID 03/06/20 [History] Amoxicillin/Clavulanate K [Augmentin 875-125 MG] 1 tab PO BID #13 tablet 04/14/21 [Rx] Hydrocodone/Acetaminophen [HYDROcodone-Acetaminophen 5-325 MG] 1 each PO Q6H PRN #14 tab 04/14/21 [Rx] atorvaSTATin [Lipitor] 1 dose PO DAILY 04/14/21 [History] Past Medical History - Past Health History Medical/Surgical History: Denies Medical/Surgical History HEENT History: Reports: Impaired Vision Cardiovascular History: Reports: Hypertension Respiratory History: Reports: None Gastrointestinal History: Reports: None Genitourinary History: Reports: None 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 Musculoskeletal History: Reports: None Neurological History: Reports: None Psychiatric History: Reports: Anxiety, Bipolar, Depression Endocrine/Metabolic History: Reports: Obesity/BMI 30+ Hematologic History: Reports: None Immunologic History: Reports: None Oncologic (Cancer) History: Reports: None Dermatologic History: Reports: None - Infectious Disease History Infectious Disease History: Reports: Chicken Pox - Past Surgical History Head Surgeries/Procedures: Reports: None HEENT Surgical History: Reports: None Cardiovascular Surgical History: Reports: None Endocrine Surgical History: Reports: None Social & Family History - Family History Family Medical History: No Pertinent Family History HEENT: Reports: None Cardiac: Reports: None Respiratory: Reports: None GI: Reports: None OBGYN: Reports: None Musculoskeletal: Reports: None Neurological: Reports: None Psychiatric: Reports: None Endocrine/Metabolic: Reports: Diabetes, type II Immunologic: Reports: None Dermatologic: Reports: None Oncologic: Reports: None - Caffeine Use Caffeine Use: Reports: Soda - Recreational Drug Use Recreational Drug Use: No ED ROS GENERAL - Review of Systems Review Of Systems: See Below ED EXAM, GENERAL - Physical Exam Exam: See Below Course - Vital Signs Last Recorded V/S: Last Vital Signs Temp 36.4 C 04/14/21 20:57 Pulse 86 04/14/21 22:13 Resp 16 04/14/21 22:13 BP 142/80 H 04/14/21 22:13 Pulse Ox 99 04/14/21 22:13 - Orders/Labs/Meds Meds: Medications Discontinued Medications Generic Name Dose Route Start Last Admin Trade Name Freq PRN Reason Stop Dose Admin Amoxicillin/Clavulanate Potassium 1 tab 04/14/21 21:43 04/14/21 22:10 Amoxicillin/Clavulanate K 875-125 Mg Tab PO 04/14/21 21:44 1 tab ONETIME ONE Administration Ketorolac Tromethamine 30 mg 04/14/21 21:33 04/14/21 22:10 Ketorolac 30 Mg/Ml Sdv IM 04/14/21 21:34 30 mg ONETIME ONE Administration Departure - Departure Time of Disposition: 21:46 Disposition: Home, Self-Care 01 Condition: Fair Clinical Impression: Dental abscess, Dental caries - Discharge Information *PRESCRIPTION DRUG MONITORING PROGRAM REVIEWED*: No *COPY OF PRESCRIPTION DRUG MONITORING REPORT IN PATIENT NIURKA: No Prescriptions: Amoxicillin/Clavulanate K [Augmentin 875-125 MG] 1 tab PO BID #13 tablet Hydrocodone/Acetaminophen [HYDROcodone-Acetaminophen 5-325 MG] 1 each PO Q6H PRN #14 tab PRN Reason: Pain (Severe 7-10) Instructions: Dental Caries, Adult, Dental Abscess Referrals: Beatrice Rose NP [Primary Care Provider] - Forms: ED Department Discharge Additional Instructions: Your evaluated today on an emergent basis. At this time I did provide you with pain medication here in the emergency department. I did not provide you with any sedating medication as you are driving. I did offer sending your pain medication to a pharmacy that is open this evening however you preferred service drug pharmacy. I did send [place] which can be used every 6 hours for pain with ibuprofen 400 to 600 mg every 6 hours alternating. I recommend you complete the antibiotic course as prescribed and follow-up with a dentist on Saturday. If you have any further worsening of your symptoms please return to the emergency department. The patient is informed of any results of their evaluation and diagnostic workup and all questions are answered. They are given discharge instructions and return precautions. The patient is stable for discharge. The patient states they understand and agree with the plan and that they will return if their symptoms get worse or if they have any new concerns. The following information is given to patients seen in the emergency department who are being discharged to home. This information is to outline your options for follow-up care. We provide all patients seen in our emergency department with a follow-up referral. The need for follow-up, as well as the timing and circumstances, are variable depending upon the specifics of your emergency department visit. If you don't have a primary care physician on staff, we will provide you with a referral. We always advise you to contact your personal physician following an emergency department visit to inform them of the circumstance of the visit and for follow-up with them and/or the need for any referrals to a consulting specialist. The emergency department will also refer you to a specialist when appropriate. This referral assures that you have the opportunity for follow-up care with a specialist. All of these measure are taken in an effort to provide you with optimal care, which includes your follow-up. Under all circumstances we always encourage you to contact your private physician who remains a resource for coordinating your care. When calling for follow-up care, please make the office aware that this follow-up is from your recent emergency room visit. If for any reason you are refused follow-up, please contact the [facility] Emergency Department at and asked to speak to the emergency department charge nurse. Sepsis Event Note (ED) - Evaluation Sepsis Screening Result: No Definite Risk
[2021-04-14 22:13] VITALS: BP 142/80
== END 2021-04-14 22:16 | disposition home or self-care (01) ==
LOC: MW.ED 20:28
DX: K04.7 Periapical abscess without sinus (principal); K02.9 Dental caries, unspecified; I10 Essential (primary) hypertension; E66.9 Obesity, unspecified; Z68.36 Body mass index [BMI] 36.0-36.9, adult; Z79.899 Other long term (current) drug therapy; Z79.84 Long term (current) use of oral hypoglycemic drugs
CPT/HCPCS: 96372; 99282; A9270; J1885

== ENCOUNTER 2021-05-16 22:12 | Emergency (ER) | payer BC, MEDICAID ==
[2021-05-16] MEDS ORDERED: Ibuprofen 600 MG Tab PO ONE (23:35)
[2021-05-16] MEDS ORDERED: Cephalexin 500 MG Cap PO ONE (23:35)
--- NOTE | 2021-05-16 23:37 | EDM.PDOC ---
ED HPI GENERAL MEDICAL PROBLEM - General Chief Complaint: ENT Problem Stated Complaint: MOUTH PAIN Time Seen by Provider: 05/16/21 23:05 - History of Present Illness INITIAL COMMENTS - FREE TEXT/NARRATIVE: HISTORY AND PHYSICAL: History of present illness: This is a 30-year-old female who presents ER today secondary to dental pain for several months. Patient reports that the last course of antibiotic she took without 2 months ago. Patient has any recent fevers, shakes, chills, nausea, vomiting, diarrhea. Patient ports that she has not seen a dentist as of yet but has a phone number for her boss for dentist that she will call tomorrow. Review of systems: As per history of present illness and below otherwise all systems reviewed and negative. Past medical history: As per history of present illness and as reviewed below otherwise noncontributory. Surgical history: As per history of present illness and as reviewed below otherwise noncontributory. Social history: No reported history of drug abuse. Family history: As per history of present illness and as reviewed below otherwise noncontributory. Physical exam: This patient was seen and evaluated during the 2019 SARS-CoV-2 novel coronavirus pandemic period. Community viral transmission is ongoing at time of this encounter and the emergency department is operating under pandemic response procedures. Constitutional: Patient is oriented to person, place, and time. Appears well- developed and well-nourished. No distress. HEENT: Moist mucous membranes Head: Normocephalic and atraumatic Eyes: Right eye exhibits no discharge. Left eye exhibits no discharge. No scleral icterus Neck: Normal range of motion. No tracheal deviation present. Cardiovascular: Normal rate and regular rhythm. Pulmonary: Effort normal, no respiratory distress. Abdominal: No distention Musculoskeletal: Normal range of motion Neurologic: Alert and oriented to person, place and time. Skin: [place], warm and dry. Psychiatric: Normal mood and affect. Behavior is normal. Judgment and thought content normal. Nursing note and vital signs have been reviewed Patient is some mild swelling and discomfort to her left lower premolars. Patient has no trismus. Patient has no evidence of airway compromise. Diagnostics: [] Therapeutics: [] Assessment and plan: 30-year-old presents ER today with dental pain. Patient get started on Keflex and ibuprofen for pain and will be instructed to follow-up with dentist as soon as possible. Reassessment at the time of disposition demonstrates that the patient is in no acute distress. The patient has remained stable throughout the entire ED visit and is without objective evidence for acute process requiring urgent intervention or hospitalization. The patient is stable for discharge, counseling is provided as documented above, discussed symptomatic treatment and specific conditions for return. I have spoken with the patient/caregiver and discussed todays findings, in addition to providing specific details for the plan of care. Questions are answered and there is agreement with the plan. Definitive disposition and diagnosis as appropriate pending reevaluation and review of above. dental area Pain Score (Numeric/FACES): 10 - Related Data Allergies Allergy/AdvReac Type Severity Reaction Status Date / Time No Known Allergies Allergy Verified 05/16/21 22:48 Home Meds: Home Meds Venlafaxine [Effexor] 75 mg PO DAILY 10/02/13 [History] lisinopriL [Lisinopril] 0 mg PO DAILY 03/06/20 [History] metFORMIN [Glucophage XR] 1,000 mg PO BID 03/06/20 [History] Hydrocodone/Acetaminophen [HYDROcodone-Acetaminophen 5-325 MG] 1 each PO Q6H PRN #14 tab 04/14/21 [Rx] atorvaSTATin [Lipitor] 1 dose PO DAILY 04/14/21 [History] Past Medical History - Past Health History Medical/Surgical History: Denies Medical/Surgical History HEENT History: Reports: Impaired Vision Cardiovascular History: Reports: Hypertension Respiratory History: Reports: None Gastrointestinal History: Reports: None Genitourinary History: Reports: None MULTIP[employer]OCK[employer]WMEMBER History: Reports: None Musculoskeletal History: Reports: None Neurological History: Reports: None Psychiatric History: Reports: Anxiety, Bipolar, Depression Endocrine/Metabolic History: Reports: Diabetes, Type II, Obesity/BMI 30+ Insulin Pump Model and Oven Attendant: None Hematologic History: Reports: None Immunologic History: Reports: None Oncologic (Cancer) History: Reports: None Dermatologic History: Reports: None - Infectious Disease History Infectious Disease History: Reports: Chicken Pox - Past Surgical History Head Surgeries/Procedures: Reports: None HEENT Surgical History: Reports: None Cardiovascular Surgical History: Reports: None Endocrine Surgical History: Reports: None Social & Family History - Family History Family Medical History: No Pertinent Family History HEENT: Reports: None Cardiac: Reports: None Respiratory: Reports: None GI: Reports: None OBGYN: Reports: None Musculoskeletal: Reports: None Neurological: Reports: None Psychiatric: Reports: None Endocrine/Metabolic: Reports: Diabetes, type II Immunologic: Reports: None Dermatologic: Reports: None Oncologic: Reports: None - Caffeine Use Caffeine Use: Reports: Soda - Recreational Drug Use Recreational Drug Use: No ED ROS GENERAL - Review of Systems Review Of Systems: See Below ED EXAM, GENERAL - Physical Exam Exam: See Below Course - Vital Signs Last Recorded V/S: Last Vital Signs Temp 96.8 F L 05/16/21 22:40 Pulse 86 05/16/21 22:40 Resp 18 05/16/21 22:40 BP 151/82 H 05/16/21 22:40 Pulse Ox 97 05/16/21 22:40 - Orders/Labs/Meds Orders: Active Orders 24 hr Category Date Time Status Ibuprofen [Motrin] Med 05/16/21 23:35 Once 600 mg PO ONETIME ONE cephALEXin [Keflex] Med 05/16/21 23:35 Once 500 mg PO ONETIME ONE Departure - Departure Time of Disposition: 23:37 Disposition: Home, Self-Care 01 Condition: Good Clinical Impression: Toothache, Dental abscess - Discharge Information Instructions: Dental Abscess Additional Instructions: Your seen and evaluated in ER today secondary to a dental abscess. You will get started on Keflex and ibuprofen help with your pain. Please call your dentist as soon as possible make an appointment for definitive management and treatment of your dental abscess. The following information is given to patients seen in the emergency department who are being discharged to home. This information is to outline your options for follow-up care. We provide all patients seen in our emergency department with a follow-up referral. The need for follow-up, as well as the timing and circumstances, are variable depending upon the specifics of your emergency department visit. If you don't have a primary care physician on staff, we will provide you with a referral. We always advise you to contact your personal physician following an emergency department visit to inform them of the circumstance of the visit and for follow-up with them and/or the need for any referrals to a consulting specialist. The emergency department will also refer you to a specialist when appropriate. This referral assures that you have the opportunity for follow-up care with a specialist. All of these measure are taken in an effort to provide you with optimal care, which includes your follow-up. Under all circumstances we always encourage you to contact your private papi lockwood who remains a resource for coordinating your care. When calling for follow-up care, please make the office aware that this follow-up is from your recent emergency room visit. If for any reason you are refused follow-up, please contact the [facility] Emergency Department at and asked to speak to the emergency department charge nurse. [facility] [address] [place] [id number] [facility] [address] [place] [id number] Sepsis Event Note (ED) - Evaluation Sepsis Screening Result: No Definite Risk - Focused Exam Vital Signs: Vital Signs Temp Pulse Resp BP Pulse Ox 05/16/21 22:40 96.8 F L 86 18 151/82 H 97 - My Orders Last 24 Hours: My Active Orders 05/16/21 23:35 Ibuprofen [Motrin] 600 mg PO ONETIME ONE cephALEXin [Keflex] 500 mg PO ONETIME ONE - Assessment/Plan Last 24 Hours: My Active Orders 05/16/21 23:35 Ibuprofen [Motrin] 600 mg PO ONETIME ONE cephALEXin [Keflex] 500 mg PO ONETIME ONE
[2021-05-16] MEDS ORDERED: traMADol 50 MG Tab PO ONE (23:47)
[2021-05-17 00:02] VITALS: BP 136/80; PULSE 82
== END 2021-05-16 23:58 | disposition home or self-care (01) ==
LOC: MW.ED 22:12
DX: K04.7 Periapical abscess without sinus (principal); I10 Essential (primary) hypertension; E11.9 Type 2 diabetes mellitus without complications; E66.9 Obesity, unspecified; Z68.36 Body mass index [BMI] 36.0-36.9, adult; Z79.84 Long term (current) use of oral hypoglycemic drugs; Z79.899 Other long term (current) drug therapy
CPT/HCPCS: 99282; A9270

== ENCOUNTER 2021-07-26 12:39 | Emergency (ER) | payer BC, MEDICAID ==
[2021-07-26 14:35] LABS: INFLUENZA A NAA NEGATIVE (NEGATIVE); INFLUENZA B NAA NEGATIVE (NEGATIVE)
[2021-07-26 15:05] LABS: CORONAVIRUS COVID-19 NAA POSITIVE (NEGATIVE)
[2021-07-26 15:13] VITALS: BP 149/87; PULSE 86
== END 2021-07-26 15:12 | disposition home or self-care (01) ==
LOC: MW.ED 12:39
DX: U07.1 COVID-19 (principal); E11.9 Type 2 diabetes mellitus without complications; I10 Essential (primary) hypertension; F41.9 Anxiety disorder, unspecified; F32.A Depression, unspecified; F17.209 Nicotine dependence, unspecified, with unspecified nicotine-induced disorders; E66.9 Obesity, unspecified; Z68.36 Body mass index [BMI] 36.0-36.9, adult; Z79.899 Other long term (current) drug therapy
CPT/HCPCS: 0240U; 71045; 99283

== ENCOUNTER 2022-02-20 20:30 | Emergency (ER) | payer MEDICAID | END 2022-02-20 21:30 | LOC: MW.ED 20:30 | DX: J02.9 Acute pharyngitis, unspecified (principal) | CPT/HCPCS: 96372; 99282; 99283 ==

== ENCOUNTER 2022-04-04 19:09 | Emergency (ER) | payer MEDICAID ==
[2022-04-04 19:37] VITALS: BP 124/76; PULSE 89
[2022-04-04] MEDS ORDERED: Ibuprofen 400 MG Tab PO ONE (19:40)
[2022-04-04] MEDS ORDERED: Acetaminophen 325 MG Tab PO ONE (19:40)
[2022-04-04] MEDS ORDERED: Lidocaine 5% 700 MG Patch TOP ONE (19:40)
[2022-04-04] MEDS ORDERED: Acetaminophen 500 MG Tab ONE (19:46)
[2022-04-04] MEDS ORDERED: Acetaminophen 500 MG Tab PO ONE (19:48)
== END 2022-04-04 21:49 | disposition home or self-care (01) ==
LOC: MW.ED 19:09
DX: M25.511 Pain in right shoulder (principal); E78.00 Pure hypercholesterolemia, unspecified; I10 Essential (primary) hypertension; E11.9 Type 2 diabetes mellitus without complications; E66.9 Obesity, unspecified; Z68.37 Body mass index [BMI] 37.0-37.9, adult; Z79.84 Long term (current) use of oral hypoglycemic drugs; Z79.899 Other long term (current) drug therapy
CPT/HCPCS: 73000; 73030; 99283; A9270

== ENCOUNTER 2022-10-10 22:28 | Emergency (ER) | payer MEDICAID ==
[2022-10-10 23:40] VITALS: BP 126/84; PULSE 92
[2022-10-10] MEDS ORDERED: Acetaminophen/oxyCODONE 325-5 MG Tab PO ONE (23:47)
[2022-10-10] MEDS ORDERED: Ibuprofen 600 MG Tab PO ONE (23:47)
[2022-10-10] MEDS ORDERED: Amoxicillin/Clavulanate K 875-125 MG Tab PO ONE (23:47)
== END 2022-10-10 23:56 | disposition home or self-care (01) ==
LOC: MW.ED 22:28
DX: K04.7 Periapical abscess without sinus (principal); I10 Essential (primary) hypertension; E78.00 Pure hypercholesterolemia, unspecified; E11.9 Type 2 diabetes mellitus without complications; E66.9 Obesity, unspecified; Z79.84 Long term (current) use of oral hypoglycemic drugs; Z79.899 Other long term (current) drug therapy
CPT/HCPCS: 99282; A9270

== ENCOUNTER 2023-01-02 18:05 | Emergency (ER) | payer MEDICAID ==
[2023-01-02] MEDS: Acetaminophen/HYDROcodone 325-5 MG Tab PO ONE (18:38)
[2023-01-02 19:08] VITALS: BP 162/104; PULSE 87
== END 2023-01-02 19:07 | disposition home or self-care (01) ==
LOC: MW.ED 18:05
DX: K02.9 Dental caries, unspecified (principal); I10 Essential (primary) hypertension; E11.9 Type 2 diabetes mellitus without complications; F17.210 Nicotine dependence, cigarettes, uncomplicated; Z79.84 Long term (current) use of oral hypoglycemic drugs; Z79.899 Other long term (current) drug therapy
CPT/HCPCS: 99282; A9270; 99283

== ENCOUNTER 2023-03-01 03:07 | Emergency (ER) | payer MEDICAID ==
[2023-03-01 04:00] VITALS: BP 143/78; PULSE 87
== END 2023-03-01 03:55 | disposition home or self-care (01) ==
LOC: MW.ED 03:07
DX: K08.89 Other specified disorders of teeth and supporting structures (principal); E11.9 Type 2 diabetes mellitus without complications; I10 Essential (primary) hypertension; Z79.84 Long term (current) use of oral hypoglycemic drugs; Z79.899 Other long term (current) drug therapy
CPT/HCPCS: 99282; 99283

== ENCOUNTER 2023-05-24 23:55 | Emergency (ER) | payer MEDICAID ==
[2023-05-25] MEDS ORDERED: Sodium Chloride 0.9% 10 ML Syringe FLUSH PRN (00:20)
[2023-05-25] MEDS ORDERED: Sodium Chloride 0.9% 2.5 ML Syringe FLUSH PRN (00:20)
[2023-05-25 01:17] VITALS: BP 141/85; PULSE 101
== END 2023-05-25 01:17 | disposition home or self-care (01) ==
LOC: MW.ED 23:55
DX: O26.892 Other specified pregnancy related conditions, second trimester (principal); R10.13 Epigastric pain; O16.2 Unspecified maternal hypertension, second trimester; O24.912 Unspecified diabetes mellitus in pregnancy, second trimester; Z79.84 Long term (current) use of oral hypoglycemic drugs; Z79.899 Other long term (current) drug therapy; Z3A.19 19 weeks gestation of pregnancy
CPT/HCPCS: 76805; 76805-26; 93010; 99283; 99284

== ENCOUNTER 2023-10-27 21:44 | Emergency (ER) | payer MEDICAID ==
[2023-10-27] MEDS: Diphtheria,Pertussis(Acell),Tetanus Vaccine 0.5 ML Syringe IM ONE (22:18)
[2023-10-27 22:41] VITALS: BP 134/76; PULSE 82
== END 2023-10-27 22:40 | disposition home or self-care (01) ==
LOC: MW.ED 21:44
DX: S61.411A Laceration without foreign body of right hand, initial encounter (principal); I10 Essential (primary) hypertension; E11.9 Type 2 diabetes mellitus without complications; Z79.899 Other long term (current) drug therapy; Z79.4 Long term (current) use of insulin; Z79.84 Long term (current) use of oral hypoglycemic drugs; W25.XXXA Contact with sharp glass, initial encounter; Z23 Encounter for immunization
CPT/HCPCS: 12001; 90471; 90715; 99283; 99283-25

== ENCOUNTER 2024-03-05 17:52 | Emergency (ER) | payer MEDICAID ==
[2024-03-05] MEDS: Benzocaine 20% Topical Spray UD MUCMEM ONE (21:09)
[2024-03-05] MEDS: Lidocaine 2% Viscous Solution 15 ML UD PO ONE (21:09)
[2024-03-05] MEDS: Amoxicillin/Clavulanate K 875-125 MG Tab PO ONE (21:10)
[2024-03-05 21:27] VITALS: BP 180/92; PULSE 90
== END 2024-03-05 21:25 | disposition home or self-care (01) ==
LOC: MW.ED 17:52
DX: K08.89 Other specified disorders of teeth and supporting structures (principal); I10 Essential (primary) hypertension; E11.9 Type 2 diabetes mellitus without complications; Z79.899 Other long term (current) drug therapy; Z75.8 Other problems related to medical facilities and other health care
CPT/HCPCS: 99282; A9270

== ENCOUNTER 2024-03-21 23:48 | Emergency (ER) | payer MEDICAID ==
[2024-03-22] MEDS: Penicillin V Potassium 500 MG Tab PO STA (00:19)
[2024-03-22] MEDS: Benzocaine 20% Topical Spray UD MUCMEM ONE (00:19)
[2024-03-22] MEDS: Acetaminophen/oxyCODONE 325-5 MG Tab PO ONE (00:19)
[2024-03-22] MEDS: Lidocaine 2% Viscous Solution 15 ML UD PO ONE (00:19)
[2024-03-22 00:23] VITALS: BP 145/84; PULSE 92
== END 2024-03-22 00:40 | disposition home or self-care (01) ==
LOC: MW.ED 23:48
DX: K04.7 Periapical abscess without sinus (principal); I10 Essential (primary) hypertension; E11.9 Type 2 diabetes mellitus without complications; Z79.4 Long term (current) use of insulin; Z79.899 Other long term (current) drug therapy; Z79.84 Long term (current) use of oral hypoglycemic drugs
CPT/HCPCS: 99283; A9270

== ENCOUNTER 2024-05-06 07:19 | Emergency (ER) | payer MEDICAID ==
[2024-05-06] MEDS: amLODIPine 5 MG Tab PO ONE (07:31)
[2024-05-06 07:42] VITALS: BP 156/99; PULSE 98
== END 2024-05-06 07:41 ==
LOC: MW.ED 07:19
DX: I10 Essential (primary) hypertension (principal); E11.9 Type 2 diabetes mellitus without complications; F17.210 Nicotine dependence, cigarettes, uncomplicated; Z75.8 Other problems related to medical facilities and other health care; Z79.4 Long term (current) use of insulin; Z79.899 Other long term (current) drug therapy
CPT/HCPCS: 99283; A9270-GY

== ENCOUNTER 2024-05-21 10:58 | Emergency (ER) | payer MEDICAID ==
[2024-05-21 11:54] VITALS: BP 182/103; PULSE 88
== END 2024-05-21 11:53 | disposition home or self-care (01) ==
LOC: MW.ED 10:58
DX: K04.7 Periapical abscess without sinus (principal); I10 Essential (primary) hypertension; E11.9 Type 2 diabetes mellitus without complications; Z79.4 Long term (current) use of insulin; Z79.84 Long term (current) use of oral hypoglycemic drugs; Z79.899 Other long term (current) drug therapy; Z75.8 Other problems related to medical facilities and other health care
CPT/HCPCS: 99283

== ENCOUNTER 2024-11-27 00:25 | Emergency (ER) | payer SELFPAY ==
[2024-11-27 00:35] VITALS: BP 164/70; PULSE 94
[2024-11-27] MEDS: Amoxicillin/Clavulanate K 875-125 MG Tab PO ONE (03:22)
== END 2024-11-27 04:30 | disposition home or self-care (01) ==
LOC: MW.ED 00:25
DX: H65.91 Unspecified nonsuppurative otitis media, right ear (principal); H60.501 Unspecified acute noninfective otitis externa, right ear; I10 Essential (primary) hypertension; E11.9 Type 2 diabetes mellitus without complications; Z79.4 Long term (current) use of insulin; Z79.84 Long term (current) use of oral hypoglycemic drugs; Z79.899 Other long term (current) drug therapy
CPT/HCPCS: 99282; A9270-GY

== ENCOUNTER 2025-01-22 18:30 | Emergency (ER) | payer MEDICAID ==
[2025-01-22 18:52] VITALS: BP 157/74; PULSE 107
[2025-01-22] MEDS: Prochlorperazine 10 MG/2 ML SDV IVPUSH ONE (19:05)
== END 2025-01-22 19:27 | disposition left against medical advice (07) ==
LOC: MW.ED 18:30
DX: R51.9 Headache, unspecified (principal); I10 Essential (primary) hypertension; E11.9 Type 2 diabetes mellitus without complications; Z75.3 Unavailability and inaccessibility of health-care facilities; Z79.84 Long term (current) use of oral hypoglycemic drugs; Z79.899 Other long term (current) drug therapy
CPT/HCPCS: 70450; 96374; 99284; J0780

== ENCOUNTER 2025-02-06 09:49 | Emergency (ER) | payer BC, MEDICAID ==
[2025-02-06 11:20] VITALS: BP 128/83; PULSE 98
== END 2025-02-06 13:32 | disposition home or self-care (01) ==
LOC: MW.ED 09:49
DX: M25.512 Pain in left shoulder (principal); I10 Essential (primary) hypertension; E11.9 Type 2 diabetes mellitus without complications; Z79.84 Long term (current) use of oral hypoglycemic drugs; Z79.899 Other long term (current) drug therapy; Z75.3 Unavailability and inaccessibility of health-care facilities
CPT/HCPCS: 73030; 99283; A9270